=== PATIENT | female | born 1950 | race Caucasian/White ===

== ENCOUNTER → 2018-12-20 11:05 | Outpatient (CLI) | payer MEDICARE, OTHER, SELFPAY ==
[2018-12-20 12:49] LABS: Blood Urea Nitrogen 15 mg/dL (7-17); Calcium 9.8 mg/dL (8.4-10.2); Carbon Dioxide 30 mmol/L (22-32); Chloride 103 mmol/L (98-107); Estimated Glomerular Filt Rate > 60.0 mL/min (>60); Glucose 87 mg/dL (80-110); HEMOLYSIS < 15 (0-50); Sodium 140 mmol/L (137-145)
== END ==
PROVIDERS: Visit Provider Physician Assistant
DX: R10.9 Unspecified abdominal pain (principal)
CPT/HCPCS: 36415; 80048; 87086

== ENCOUNTER 2022-09-03 16:21 | Emergency (ER) | payer OTHER, SELFPAY ==
[2022-09-03] VITALS (10 sets, daily range): BP systolic 140–177; BP diastolic 77–87; PULSE 69–89; RESP 16; TEMP 37.1; O2SAT 97–100; BMI 25.7
[2022-09-03 17:16] LABS: Add Manual Diff / Slide Review NO; Basophils Absolute Auto 0 /uL (0-100); Basophils Percent Auto 0.7 % (0-2); Eosinophils Absolute Auto 100 /uL (0-450); Eosinophils Percent Auto 1.6 % (2-4); Hemoglobin 15.5 g/dL (12.0-16.0); Lymphocytes Absolute Auto 1200 /uL (1100-4500); Lymphocytes Percent Auto 22.6 % (25-40); Mean Corpuscular HGB Conc 34.5 % (30-36); Mean Corpuscular Hemoglobin 32.4 PG (26-34); Monocytes Absolute Auto 400 /uL (0-900); Monocytes Percent Auto 7.1 % (3-14); Neutrophils Absolute Auto 3600 /uL (1500-7000); Platelet Count 250 X10^3/uL (150-400); Red Blood Cell Count 4.78 X10^6/uL (4.0-5.2); Red Cell Distribution Width 13.5 % (11.6-14.8); White Blood Cell Count 5.3 X10^3/uL (4.5-11.0)
[2022-09-03 17:28] LABS: Ammonia (NH3) < 9 umol/L (9-30)
[2022-09-03 17:29] LABS: Alanine Aminotransferase 34 IU/L (<35); Albumin 4.6 g/dL (3.5-5.0); Albumin Globulin Ratio 1.6 (1.0-2.8); Alkaline Phosphatase 65 U/L (38-126); Aspartate Aminotransferase 35 IU/L (14-36); BUN Creatinine Ratio 18.8 (6-22); Bilirubin Total 0.4 mg/dL (0.2-1.3); Blood Urea Nitrogen 12 mg/dL (7-17); Carbon Dioxide 27 mmol/L (22-32); Chloride 106 mmol/L (98-107); Estimated Glomerular Filt Rate > 60 mL/min (>60); Globulin 2.9 g/dL (1.7-4.1); Glucose 92 mg/dL (80-110); HEMOLYSIS < 15 (0-50); Lipase 130 U/L (23-300); Potassium 3.9 mmol/L (3.4-5.1); Sodium 138 mmol/L (137-145); Total Protein 7.5 g/dL (6.3-8.2)
--- NOTE | 2022-09-03 18:24 | DI.CT.S_ITS ---
PROCEDURE: CT ABDOMEN PELVIS W CON INDICATIONS: generalized abd pain TECHNIQUE: After the administration of intravenous contrast, axial sections acquired from the lung bases to the pubic symphysis. Coronal and sagittal reformats were performed. For radiation dose reduction, the following was used: automated exposure control, adjustment of mA and/or kV according to patient size. COMPARISON: None. FINDINGS: Lower thorax: Bibasilar mild atelectasis and infiltrate Heart size normal. No hiatal hernia. Liver: Normal in size and attenuation. No contour deformity present. Biliary system: Cholecystectomy. No intra or extrahepatic bile duct dilation. Pancreas: Unremarkable without mass or inflammation evident. Spleen: Normal in size and density. Adrenals: Normal morphology and density. Reproductive system: Unremarkable as visualized. Urinary system: Normal renal size and attenuation. No renal calculi, hydronephrosis, or solid mass present. Urinary bladder unremarkable. Gastrointestinal system: The bowel is unremarkable without evidence of bowel obstruction or inflammation. The stomach appears unremarkable. Appendix: No findings to suggest acute appendicitis. Peritoneal spaces: No mesenteric or retroperitoneal adenopathy. No free air. No free fluid. Vasculature: The IVC, aorta and iliac vasculature are unremarkable. Abdominal wall: Abdominal wall intact without evidence of ventral or inguinal hernias. Musculoskeletal: Normal bone mineralization. Degenerative disc disease and arthropathy noted in lower lumbar spine. No acute fractures. IMPRESSION: 1. No acute CT findings in the abdomen and pelvis. Approved by: Marck Dumont M.D. on 09/03/2022 at 18:18
--- NOTE | 2022-09-03 18:24 | ED.GENADULT ---
HPI - General Adult General Chief complaint: Abdominal Pain Stated complaint: ABD pain Time Seen by Provider: 09/03/22 17:59 Source: patient Mode of arrival: Ambulatory History of Present Illness HPI narrative: 72-year-old female who has had her gallbladder removed. Has also been told that she has IBS. Is followed by GI. Has had multiple endoscopies and colonoscopies in the past. Is here for evaluation of upper abdomen/right upper quadrant abdominal discomfort. Has had discomfort over the past week but worsening over the past couple days. Some nausea no vomiting. No fevers. Does some issues with constipation but this is consistent with her history of IBS. No urinary symptoms. No vaginal bleeding. She states that the symptoms she is having now are the same as what she is had several times in the past. The last time was a couple years ago. She states she is had CT scans in the past and has been diagnosed with colitis. Initially she was started on antibiotics and this did not improve any of her symptoms and then she went on steroids and her symptoms got better. She has followed up with her GI doctor since then but subsequent colonoscopies have all been unremarkable. Related Data Home Medications Medication Instructions Recorded Confirmed cholecalciferol (vitamin D3) PO 12/20/18 12/20/18 multivitamin with iron-mineral PO 12/20/18 12/20/18 nitrofurantoin 100 mg PO BID 12/20/18 12/20/18 monohydrate/macrocrystals 100 mg capsule (Macrobid) pyridoxine (vitamin B6) PO 12/20/18 12/20/18 Previous Rx's Medication Instructions Recorded prednisone 20 mg tablet 20 mg PO DAILY 7 days #7 tabs 09/03/22 Allergies Allergy/AdvReac Type Severity Reaction Status Date / Time No Known Allergies Allergy Uncoded 08/22/17 12:29 Review of Systems Constitutional Constitutional: Reports system reviewed and no additional complaints, except as documented Respiratory Respiratory: Reports system reviewed and no additional complaints, except as documented Gastrointestinal Gastrointestinal: Reports system reviewed and no additional complaints, except as documented Genitourinary Genitourinary: Reports system reviewed and no additional complaints, except as documented Integumentary/Breasts Skin/Breast: Reports system reviewed and no additional complaints, except as documented Neurologic Neurologic: Reports system reviewed and no additional complaints, except as documented Hematologic/Lymphatic On Anticoagulants: No Patient History Social History Smoking Status: Former smoker Smoking Status: Former smoker tobacco type: cigarettes alcohol intake frequency: 0-2 drinks per day Substance Use Type: does not use Exam Initial Vital Signs Initial Vital Signs: Vital Signs Temperature 98.8 F 09/03/22 16:27 Pulse Rate 89 09/03/22 16:27 Respiratory Rate 16 09/03/22 16:27 Blood Pressure 177/86 H 09/03/22 16:27 Pulse Oximetry 100 09/03/22 16:27 Oxygen Delivery Method Room Air 09/03/22 16:27 Const General: cooperative, comfortable and No ill appearing HENMT Head: normal to inspection and normocephalic Resp Effort & Inspection: normal respiratory effort Cardio Rate: regular rate GI Inspection: normal to inspection and non-distended Palpation: tender (Upper abdomen) Skin General: no rashes or lesions noted Neuro General: patient alert, patient awake and moves all extremities Extrem General: normal to inspection and capillary refill normal Course Orders Ordered: ED Orders 09/03/22 17:00 Ammonia (NH3) Stat Complete Blood Count AUTO DIFF Stat Comprehensive Metabolic Panel Stat Lipase Stat 09/03/22 18:24 CT abdomen pelvis w con Stat Vital Signs Vital signs: Vital Signs - 8 hr 09/03/22 16:27 09/03/22 16:53 09/03/22 16:54 Temperature 98.8 F Pulse Rate 89 76 76 Respiratory Rate 16 Blood Pressure 177/86 H Pulse Oximetry 100 98 97 Oxygen Delivery Method Room Air 09/03/22 16:54 09/03/22 17:00 09/03/22 17:00 Temperature Pulse Rate 75 Respiratory Rate Blood Pressure 140/77 141/80 H Pulse Oximetry 97 Oxygen Delivery Method 09/03/22 17:30 09/03/22 17:30 09/03/22 18:00 Temperature Pulse Rate 69 Respiratory Rate Blood Pressure 146/81 H 144/78 H Pulse Oximetry 97 Oxygen Delivery Method 09/03/22 18:00 09/03/22 18:30 09/03/22 18:30 Temperature Pulse Rate 71 78 Respiratory Rate Blood Pressure 150/81 H Pulse Oximetry 98 97 Oxygen Delivery Method 09/03/22 18:42 09/03/22 18:42 09/03/22 19:00 Temperature Pulse Rate 79 Respiratory Rate Blood Pressure 152/87 H 142/86 H Pulse Oximetry 100 Oxygen Delivery Method 09/03/22 19:00 09/03/22 19:30 09/03/22 19:30 Temperature Pulse Rate 77 82 Respiratory Rate Blood Pressure 158/87 H Pulse Oximetry 99 99 Oxygen Delivery Method Medical Decision Making Lab Data Lab results reviewed: Yes I reviewed the patient's lab results. 09/03/22 17:00 09/03/22 17:00 Labs: Lab Results 09/03/22 09/03/22 09/03/22 Range/Units 17:00 17:00 17:00 WBC 5.3 (4.5-11.0) X10^3/uL RBC 4.78 (4.0-5.2) X10^6/uL Hgb 15.5 (12.0-16.0) g/dL Hct 45.0 (36-46) % MCV 94.0 (80-100) fL MCH 32.4 (26-34) PG MCHC 34.5 (30-36) % RDW 13.5 (11.6-14.8) % Plt Count 250 (150-400) X10^3/uL Neut % (Auto) 68.0 (50-75) % Lymph % (Auto) 22.6 L (25-40) % Richardson % (Auto) 7.1 (3-14) % Eos % (Auto) 1.6 L (2-4) % Baso % (Auto) 0.7 (0-2) % Neut # (Auto) 3600 (9297-2233) /uL Lymph # (Auto) 1200 (5001-3282) /uL Richardson # (Auto) 400 (0-900) /uL Eos # (Auto) 100 (0-450) /uL Baso # (Auto) 0 (0-100) /uL Sodium 138 (137-145) mmol/L Potassium 3.9 (3.4-5.1) mmol/L Chloride 106 (98-107) mmol/L Carbon Dioxide 27 (22-32) mmol/L BUN 12 (7-17) mg/dL Creatinine 0.64 (0.52-1.04) mg/dL Estimated GFR > 60 (>60) mL/min BUN/Creatinine Ratio 18.8 (6-22) Glucose 92 (80-110) mg/dL Calcium 10.0 (8.4-10.2) mg/dL Total Bilirubin 0.4 (0.2-1.3) mg/dL AST 35 (14-36) IU/L ALT 34 (<35) IU/L Alkaline Phosphatase 65 (38-126) U/L Ammonia < 9 L (9-30) umol/L Total Protein 7.5 (6.3-8.2) g/dL Albumin 4.6 (3.5-5.0) g/dL Globulin 2.9 (1.7-4.1) g/dL Albumin/Globulin Ratio 1.6 (1.0-2.8) Lipase 130 (23-300) U/L Urine Dip Bedside Urine Glucose Negative Bedside Urine Bilirubin - Negative Bedside Urine Ketone - Negative Urine Specific [place] 1.010 Bedside Urine Occult Blood - Negative Bedside Urine pH 7.0 Bedside Urine Protein - Negative Bedside Urine Urobilinogen - Negative Bedside Urine Nitrite - Negative Bedside Urine Leukocytes - Negative Esterase Point of care testing: Urine Dip Bedside Urine Glucose Negative Bedside Urine Bilirubin - Negative Bedside Urine Ketone - Negative Urine Specific [place] 1.010 Bedside Urine Occult Blood - Negative Bedside Urine pH 7.0 Bedside Urine Protein - Negative Bedside Urine Urobilinogen - Negative Bedside Urine Nitrite - Negative Bedside Urine Leukocytes - Negative Esterase Imaging Data CT scan - abdomen/pelvis: Radiologist's Impression: PROCEDURE:? CT ABDOMEN PELVIS W CON ? INDICATIONS:? generalized abd pain ? TECHNIQUE:? After the administration of intravenous contrast, axial sections acquired from the lung bases to the pubic symphysis.? Coronal and sagittal reformats were performed.? For radiation dose reduction, the following was used:? automated exposure control, adjustment of mA and/or kV according to patient size.? ? COMPARISON:? None. ? FINDINGS: ? Lower thorax:? Bibasilar mild atelectasis and infiltrate? Heart size normal.? No hiatal hernia. ? Liver:? Normal in size and attenuation. No contour deformity present. ? Biliary system:? Cholecystectomy.? No intra or extrahepatic bile duct dilation. ? Pancreas:? Unremarkable without mass or inflammation evident. ? Spleen:? Normal in size and density. ? Adrenals:? Normal morphology and density. ? Reproductive system:? Unremarkable as visualized. ? Urinary system:? Normal renal size and attenuation. No renal calculi, hydronephrosis, or solid mass present.? Urinary bladder unremarkable. ? Gastrointestinal system:? The bowel is unremarkable without evidence of bowel obstruction or inflammation. The stomach appears unremarkable. ? Appendix:? No findings to suggest acute appendicitis. ? Peritoneal spaces:? No mesenteric or retroperitoneal adenopathy.? No free air.? No free fluid.? ? Vasculature:? The IVC, aorta and iliac vasculature are unremarkable. ? Abdominal wall:? Abdominal wall intact without evidence of ventral or inguinal hernias. ? Musculoskeletal:? Normal bone mineralization.? Degenerative disc disease and arthropathy noted in lower lumbar spine.? No acute fractures.? ? IMPRESSION: ? 1. No acute CT findings in the abdomen and pelvis. MDM Narrative Medical decision making narrative: Labs are unremarkable. Has a benign exam. CT scan is unremarkable. No signs of colitis. I did discuss this with the patient. Patient understands the lack of a definitive diagnosis. There was no indication for antibiotics. The plan will be to give her a prescription for steroids however she was going to hold on this for the next couple days. The reason I am doing this because she states that the last time she had symptoms like this she received steroids and they resolved. She does admit that she came in earlier this time than the last time because she did not want the symptoms to get worse. If her symptoms are not better or worse in the next couple days that she will start taking the steroids as directed. She does understand that if her symptoms continue to get worse despite that that she does need to be re-evaluated. The patient expressed understanding and agreement with this plan. Discharge Plan Departure Patient Disposition: Home Clinical Impression: Abdominal pain Instructions: DI for Abdominal Pain-Adult Activity Restrictions/Additional Instructions: I do recommend that you continue to take all of your medications as directed. Contact your GI doctor tomorrow for a follow-up. Return to the emergency department for new or worsening symptoms. Prescriptions: New prednisone 20 mg tablet 20 mg PO DAILY 7 Days Qty: 7 0RF No Action pyridoxine (vitamin B6) PO cholecalciferol (vitamin D3) PO multivitamin with iron-mineral PO nitrofurantoin monohyd/m-cryst [Macrobid] 100 mg capsule 100 mg PO BID Stand Alone Forms: Patient Portal/API
== END 2022-09-03 20:02 | disposition home or self-care (01) ==
PROVIDERS: Emergency Medicine; Emergency Provider Emergency Medicine
DX: R10.11 Right upper quadrant pain (principal)
CPT/HCPCS: 36415; 74177; 80053; 81003; 82140; 83690; 85025; 99284; Q9967

== ENCOUNTER 2023-10-04 13:45 | Outpatient (RCR) | payer MEDICARE, SELFPAY ==
--- NOTE | 2023-07-19 17:43 | PT.OIE ---
Current Diagnoses Functional diarrhea (07/19/23) Low back pain, unspecified (07/19/23) Other specified disorders of muscle (07/19/23) Unspecified abdominal pain (07/19/23) Visit Care Team Role Provider Type Family Provider Other Providers Referring Provider Specialty: Address: Phone: Fax: Email: Angelica Quarles MD Attending Provider Non-Staff Primary Care Provider Specialty: Family Practice Address: [address] [place] [address], [id number] Email: Physical Therapy Initial Evaluation PT-OP-A Visit Information Start: 07/05/23 17:50 Freq: Status: Active Protocol: Document 07/19/23 13:48 LRN (Rec: 07/19/23 16:40 LRN [id number]) Out-Patient Physical Therapy Visit Information Visit Information Visit Type Initial Evaluation Visit Start Time 13:48 Visit Stop Time 14:33 Visit Number 1 Evaluation Information Evaluation Date 07/19/23 Precautions Precautions Intermittent Low back and now mid back pain possibly from IBS (03/2016), Osteoporosis, 3 surgeries for L tibial plateau fx, f/b L TKA 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 PT-OP-B Current Condition Start: 07/05/23 17:50 Freq: Status: Active Protocol: Document 07/19/23 13:48 LRN (Rec: 07/19/23 16:40 LRN [id number]) Current Condition History of Current Condition Onset Date 03/2016 Current Complaints PF ms not working properly, BM's 4-8x in morning. Pain associated w/BMs History of Current Condition Daily IBS pain and weird bowel habits that started 04/2018. Has 4-8 BM's in AM daily, wakes every morning with pain in intestines at 4:30 am, wakes by 5:30 am. Takes 2 hrs to push out fecal material. Can't be horizontal except for 5 hrs at a time. Pt states she was referred by GI physician due to the IBS. Treatment to use PF ms treatment with biofeedback to train her to properly push out fecal material better. Doesn't want to focus on urinary problems. Prior Treatments and Tests None. Takes double Miralax daily. Eats salads and food for fiber due to IBS. Developmental History Developmental History 2017 had normal bowel movements, daily. IBS thought caused by bacterial infections. Started as severe diahrrea and moved into cramping all the time. Treatment Goals Patient/Caregiver Goals Pt goal: Able to reduce the number of BMs in morning, BM's w/o pain. Make travelling easier to have more normal bowel mvmts w/o pain. Doesn' t want to focus on urinary problems. Personal Factors Other Personal Factors That May Effect IBS, LBP, Osteoporosis, multi Therapy/Recovery surgeries on L knee. PT-OP-C Subjective Start: 07/05/23 17:50 Freq: Status: Active Protocol: Document 07/19/23 13:48 LRN (Rec: 07/19/23 16:40 LRN [id number]) Patient Questionnaires Pelvic Floor Distress Inventory Questionnaire (PFDI- SF20) Pelvic Floor Score Pt not complete Pelvic Pain and Urgency/Frequency Patient Symptom Scale Pelvic Pain Score Pt not complete OP-PT Pain Assessment Pain Assessment Grid Paper Pain Assessment Grid Completed Yes Location Midback Pain Location Details ~T12/L1 Description- Other Pain rating not listed Low Back Pain Location Details Low back/sacral level Description- Other Pain rating not listed Abdomen Pain Location Details R ASIS & L abdominal Lower quadrant. Description- Other Pain rating not listed Comments Pain Comments Pt did not rate her pain, only noted location of pain. PT-OP-I Pelvic Floor Start: 07/05/23 17:50 Freq: Status: Active Protocol: Document 07/19/23 13:48 LRN (Rec: 07/19/23 16:40 LRN [id number]) Pelvic Floor Assessment Urine Leakage Size Small Leakage Cause Cough Other Leakage Causes Leakage only with illness when she was coughing regularly. Bowel Bowel Symptoms Constipation Other Bowel Symptoms Flatulence first in AM Bowel Movement Frequency 4-8x in morning [place] Stool Chart Comments Type 5-6 Pelvic Clock Pelvic Clock 3-6 Tightness Pelvic Clock 6-9 Tenderness,Tightness Pelvic Clock 9-12 Tenderness,Tightness Pelvic Clock Other Substitute hip AD, abdominal and Gluteal ms with PF contraction. Inter-Rectal Assessment Pain around anal clock. Tightness noted. Pt obvious with use of gluteal ms for PF contraction. Prolapse Cystocele Grade 2 Prolapse Comments Questionable Rectal prolapse Uterine was palpated ~6 cm. Perineal Descent Resting Absent Bearing Absent Contraction Ability Manual Muscle Testing Left 3 Manual Muscle Testing Right 3 Manual Muscle Testing Anterior 3 Manual Muscle Testing Posterior 3 PT-OP-J Posture/Palpation/Skin Start: 07/05/23 17:50 Freq: Status: Active Protocol: Document 07/19/23 13:48 LRN (Rec: 07/19/23 16:40 LRN [id number]) Posture Evaluation Position Standing T-Spine Posture Increased Kyphosis L-Spine Posture Increased Lordosis Knee Posture (R) Genu Recurvatum Comments Posture Comments L/S curve pivot point at L4-L5 , Sacrum is flattened. PT-OP-K Range of Motion Start: 07/05/23 17:50 Freq: Status: Active Protocol: Document 07/19/23 13:48 LRN (Rec: 07/19/23 16:40 LRN [id number]) Lumbar Spine Range of Motion Lumbar Spine Active Degrees Testing Position Standing Flexion 110 Extension 12 Rotation Left 20 Rotation Right 40 Lateral Flexion Left 5 Lateral Flexion Right 5 Hip Goniometric Range of Motion Hip Right Passive Testing Position Supine Internal Rotation 20 External Rotation 50 Left Passive Testing Position Supine Internal Rotation 30 External Rotation 50 PT-OP-M Strength Start: 07/05/23 17:50 Freq: Status: Active Protocol: Document 07/19/23 13:48 LRN (Rec: 07/19/23 16:40 LRN [id number]) Trunk Strength Trunk Manual Muscle Testing Core Stabilization Good Hip Strength Hip Manual Muscle Testing Right Comments Generally 5/5 Left Comments Generally 5/5 PT-OP-Q Treatments Start: 07/05/23 17:50 Freq: Status: Active Protocol: Document 07/19/23 13:48 LRN (Rec: 07/19/23 16:40 LRN [id number]) Self-Care/Home Management Treatment Education Other Education Discussed results of evaluation, attendance compliance, goals, and plan of care (POC). Pt agreeable to attendance compliance, goals and POC. Issued, discussed, & reviewed Bladder Diary for pt to complete over the next 7 days. Explained how to fill out diary and counting of urination times. Activities Self-Care/Home Management Activities Issued & reviewed HEP: Chris ex's and discussed exercise of Quick Flicks, Long Holds and Aggravators. PT-OP-T Assessment and Plan Start: 07/05/23 17:50 Freq: Status: Active Protocol: Document 07/19/23 13:48 LRN (Rec: 07/19/23 16:40 LRN [id number]) Physical Therapy Assessment Rehab Potential Rehabilitation Potential Good Evaluation Complexity Number of Personal Factors/Comorbidities 0 Number of Body Systems Impaired 4 or More Clinical Presentation at Evaluation Evolving Impairments Impairments Activity Tolerance,Pain, Posture,ROM,Soft Tissue Mobility,Transfers Other Impairments Coordination of breathing with activities and coordination of PF with bowel movements. LBP/mid back pain. Goals Three Impairment Abdominal pain with bowel movments Short Term Goal (STG) Pt will be educated in best positioning for bowel movement . STG Duration 6 wks-08/31/23 [place] Goal (LTG) Pt will have less onset of abdominal pain with bowel movements. LTG Duration 12 wks-10/12/23 Two Impairment Increased frequency of bowel movements daily. Impairment Pt has 6-8 BMs in AM daily, type 5 & 6. Short Term Goal (STG) Decrease number of BMs in the morning. STG Duration 6 wks-08/31/23 [facility] Goal (LTG) Improve normal bowel movements to lessen time of voiding to make travelng easier LTG Duration 12 wks-10/12/23 One Impairment HEP Short Term Goal (STG) Pt will be educated in Bowel program and Bowel massage. STG Duration 6 wks-08/31/23 [facility] Goal (LTG) Pt will be educated in self care HEP of abdominal, PF, hip stretches, deep breathing, proper posturing and low back care. LTG Duration 12 wks-10/12/23 Assessment Summary Assessment Pt is a 73 yo female with a tightened posterior PF and overactive gluteals, with frequency of bowel movements ( 6-8) daily since onset of IBS in 2018, bowel types 5 & 6. Pt may have poor bowel management causing short bouts of diahrrea daily. Review of he bowel/bladder diary should be inciteful as to further areas of dysfunction needing to be addressed. The pt's LBP will need to be addressed at the same time to help relax her posterior PF leading to relaxation and improved ability to have a bowel movement. The pt will benefit from skilled physical therapy to help relax her PF, neuro reeduc the pt in proper coordination of PF contractions, body mechanics, breathing coordination with ex and activities, educ in bowel care, vulvar/perineal care and therapeutic ex, manual therapy, and posture training. Assessment for gluten allergy would be beneificial to improving her diet and bowel function. Physical Therapy Plan Frequency and Duration Frequency of Treatment 1x/Week Duration of treatment (weeks) 12 Plan of Care Start Date 07/19/23 Plan of Care End Date 10/12/23 Therapeutic Interventions Therapeutic Interventions Home Exercise Program,Joint Mobilizations,Manual Therapy, Neuromuscular Re-education, Self-Care/Home Management,Soft Tissue Mobilization,Taping, Therapeutic Activities, Therapeutic Exercises Modalities Biofeedback,Cold Pack/Ice Massage,Electric Stimulation, Hot Packs Next Visit Focus/Plan Next Note Type Treatment Note Next Visit Plan Next: Discuss and have pt complete questionnaires. Vemg asessement. EStim for relaxation, biofeedback for neuro martir to relax PF. relax PF, neuro reeduc the pt in proper coordination of PF contractions, body mechanics, breathing coordination with ex and activities, educ in bowel care, vulvar/perineal care and therapeutic ex (PF stretch & meme hip IR, L trunk rot stretch), and posture training . Check abdominal mobility and if needed: STM of abdomen (and urachus) & bladder mobility Discuss w/pt possible gluten allergy would be beneificial to improving her diet and bowel function. POC: Pt education, Manual therapy. Biofeedback with vaginal sensor for PF relaxation awareness, Therapeutic Exercises, Therapeutic Activities, Neuromuscular Reeducation.
--- NOTE | 2023-07-26 15:55 | PT.OTN ---
Addendum entered and electronically signed by Fauzia Kilpatrick, PT 07/26/23 16:28: PFDI-SF20 score: #1-6 is 29.6, #7-14 is 59.3, #15-20 is 29.83. Total is 109.8 Original Note: Current Diagnoses Functional diarrhea (07/26/23) Low back pain, unspecified (07/26/23) Other specified disorders of muscle (07/26/23) Unspecified abdominal pain (07/26/23) Physical Therapy Treatment Note PT-OP-A Visit Information Start: 07/05/23 17:50 Freq: Status: Active Protocol: Document 07/26/23 13:53 LRN (Rec: 07/26/23 14:36 LRN [id number]) Out-Patient Physical Therapy Visit Information Visit Information Visit Type Treatment Note Visit Start Time 13:53 Visit Stop Time 14:35 Visit Number 2 Evaluation Information Evaluation Date 07/19/23 Precautions Precautions Intermittent Low back and now mid back pain possibly from IBS (03/2016), Osteoporosis, 3 surgeries for L tibial plateau fx, f/b L TKA 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 Osteoporosis . PT-OP-B Current Condition Start: 07/05/23 17:50 Freq: Status: Active Protocol: Document 07/19/23 13:48 LRN (Rec: 07/19/23 16:40 LRN [id number]) Current Condition History of Current Condition Onset Date 03/2016 Current Complaints PF ms not working properly, BM's 4-8x in morning. Pain associated w/BMs History of Current Condition Daily IBS pain and weird bowel habits that started 04/2018. Has 4-8 BM's in AM daily, wakes every morning with pain in intestines at 4:30 am, wakes by 5:30 am. Takes 2 hrs to push out fecal material. Can't be horizontal except for 5 hrs at a time. Pt states she was referred by GI physician due to the IBS. Treatment to use PF ms treatment with biofeedback to train her to properly push out fecal material better. Doesn't want to focus on urinary problems. Prior Treatments and Tests None. Takes double Miralax daily. Eats salads and food for fiber due to IBS. Developmental History Developmental History 2017 had normal bowel movements, daily. IBS thought caused by bacterial infections. Started as severe diahrrea and moved into cramping all the time. Treatment Goals Patient/Caregiver Goals Pt goal: Able to reduce the number of BMs in morning, BM's w/o pain. Make travelling easier to have more normal bowel mvmts w/o pain. Doesn' t want to focus on urinary problems. Personal Factors Other Personal Factors That May Effect IBS, LBP, Osteoporosis, multi Therapy/Recovery surgeries on L knee. PT-OP-C Subjective Start: 07/05/23 17:50 Freq: Status: Active Protocol: Document 07/26/23 13:53 LRN (Rec: 07/26/23 14:36 LRN [id number]) OP-PT Subjective Patient Comments Patient Comments States her BM's are thin and long over a 3 hr period. Has to do warm H2O (24 oz) and abdominal massage every morning, and pushes a little with each BM and more on last BM. ABdominal massage trigger BM. In AM daily has abdominal pressure every morning (for IBS) with some cramping and sometimes controlled by dicyclomine ( anti-spasmodic), taken after BM in morning (at night takes Miralax), to help with reducing cramping during the day. The med doesn't cause her constipation. 2018 Gall bladder removed due to upper R quadrant pain. She has had ARM test and was told her ms are lax enough to not be able to push stool out. PT-OP-I Pelvic Floor Start: 07/05/23 17:50 Freq: Status: Active Protocol: Document 07/19/23 13:48 LRN (Rec: 07/19/23 16:40 LRN [id number]) Pelvic Floor Assessment Urine Leakage Size Small Leakage Cause Cough Other Leakage Causes Leakage only with illness when she was coughing regularly. Bowel Bowel Symptoms Constipation Other Bowel Symptoms Flatulence first in AM Bowel Movement Frequency 4-8x in morning Juliaetta Stool Chart Comments Type 5-6 Pelvic Clock Pelvic Clock 3-6 Tightness Pelvic Clock 6-9 Tenderness,Tightness Pelvic Clock 9-12 Tenderness,Tightness Pelvic Clock Other Substitute hip AD, abdominal and Gluteal ms with PF contraction. Inter-Rectal Assessment Pain around anal clock. Tightness noted. Pt obvious with use of gluteal ms for PF contraction. Prolapse Cystocele Grade 2 Prolapse Comments Questionable Rectal prolapse Uterine was palpated ~6 cm. Perineal Descent Resting Absent Bearing Absent Contraction Ability Manual Muscle Testing Left 3 Manual Muscle Testing Right 3 Manual Muscle Testing Anterior 3 Manual Muscle Testing Posterior 3 PT-OP-J Posture/Palpation/Skin Start: 07/05/23 17:50 Freq: Status: Active Protocol: Document 07/19/23 13:48 LRN (Rec: 07/19/23 16:40 LRN [id number]) Posture Evaluation Position Standing T-Spine Posture Increased Kyphosis L-Spine Posture Increased Lordosis Knee Posture (R) Genu Recurvatum Comments Posture Comments L/S curve pivot point at L4-L5 , Sacrum is flattened. PT-OP-K Range of Motion Start: 07/05/23 17:50 Freq: Status: Active Protocol: Document 07/19/23 13:48 LRN (Rec: 07/19/23 16:40 LRN [id number]) Lumbar Spine Range of Motion Lumbar Spine Active Degrees Testing Position Standing Flexion 110 Extension 12 Rotation Left 20 Rotation Right 40 Lateral Flexion Left 5 Lateral Flexion Right 5 Hip Goniometric Range of Motion Hip Right Passive Testing Position Supine Internal Rotation 20 External Rotation 50 Left Passive Testing Position Supine Internal Rotation 30 External Rotation 50 PT-OP-M Strength Start: 07/05/23 17:50 Freq: Status: Active Protocol: Document 07/19/23 13:48 LRN (Rec: 07/19/23 16:40 LRN [id number]) Trunk Strength Trunk Manual Muscle Testing Core Stabilization Good Hip Strength Hip Manual Muscle Testing Right Comments Generally 5/5 Left Comments Generally 5/5 PT-OP-Q Treatments Start: 07/05/23 17:50 Freq: Status: Active Protocol: Document 07/26/23 13:53 LRN (Rec: 07/26/23 14:36 LRN [id number]) Therapeutic Exercises Supine Exercises Happy Baby Pose Supine Exercise Name Happy Baby Pose Reps/Minutes 4' Comments Cued to relax PF, breathe slow -deep breathing. Self-Care/Home Management Treatment Education Patient Education Home Exercise Program Other Education Discussed at start, pt's new primary care physician Zak King MD at [place], [place]. Pt discussed her filling out of her Bladder diary, and her routine. Reviewed & discussed at length and in depth her bladder diary results (2.5 days), of BM's only in AM with several voids daily between 6-10 am. Discussed possible effects of medications on BM frequency and types, fluid intake (found to be of adequate amt). Discussed Fluid intake is mostly > 1/2 body wgt in oz's. Activities Self-Care/Home Management Activities Issued HEP: Happy Baby Pose PT-OP-T Assessment and Plan Start: 07/05/23 17:50 Freq: Status: Active Protocol: Document 07/26/23 13:53 LRN (Rec: 07/26/23 14:36 LRN [id number]) Physical Therapy Assessment Goals Three Impairment Abdominal pain with bowel movments Short Term Goal (STG) Pt will be educated in best positioning for bowel movement . STG Duration 6 wks-08/31/23 Wax Cutter Goal (LTG) Pt will have less onset of abdominal pain with bowel movements. LTG Duration 12 wks-10/12/23 Two Impairment Increased frequency of bowel movements daily. Impairment Pt has 6-8 BMs in AM daily, type 5 & 6. Short Term Goal (STG) Decrease number of BMs in the morning. STG Duration 6 wks-08/31/23 Half-Way Goal (LTG) Improve normal bowel movements to lessen time of voiding to make travelng easier LTG Duration 12 wks-10/12/23 One Impairment HEP Short Term Goal (STG) Pt will be educated in Bowel program and Bowel massage. STG Duration 6 wks-08/31/23 Half-Way Goal (LTG) Pt will be educated in self care HEP of abdominal, PF, hip stretches, deep breathing, proper posturing and low back care. LTG Duration 12 wks-10/12/23 Assessment Summary Assessment 73 yo female with a tightened posterior PF and overactive gluteals, with frequency of bowel movements (6-8) daily since onset of IBS in 2018, bowel types 5 & 6. After review of bladder diary, pt appears to be drinking plenty of liquids, but is taking dicyclomine (anti-spasmodic, relieves ms spasms) in AM, then miralax (laxative) in PM. Pt is having LBP that feels like menstrual cramps. PFDI- SF20 to be scored later. Physical Therapy Plan Frequency and Duration Frequency of Treatment 1x/Week Duration of treatment (weeks) 12 Plan of Care Start Date 07/19/23 Plan of Care End Date 10/12/23 Next Visit Focus/Plan Next Note Type Treatment Note Next Visit Plan Next: Vemg asessement. EStim for relaxation, biofeedback for neuro martir to relax PF. relax PF, neuro reeduc the pt in proper coordination of PF contractions, body mechanics, breathing coordination with ex and activities, educ in bowel care, vulvar/perineal care and therapeutic ex (PF stretch & meme hip IR, L trunk rot stretch), and posture training . Check abdominal mobility and if needed: STM of abdomen (and urachus) & bladder mobility Discuss w/pt possible gluten allergy would be beneificial to improving her diet and bowel function. POC: Pt education, Manual therapy. Biofeedback with vaginal sensor for PF relaxation awareness, Therapeutic Exercises, Therapeutic Activities, Neuromuscular Reeducation.
--- NOTE | 2023-08-03 14:22 | PT.OTN ---
Current Diagnoses Functional diarrhea (08/03/23) Low back pain, unspecified (08/03/23) Other specified disorders of muscle (08/03/23) Unspecified abdominal pain (08/03/23) Physical Therapy Treatment Note PT-OP-A Visit Information Start: 07/05/23 17:50 Freq: Status: Active Protocol: Document 08/03/23 13:02 LRN (Rec: 08/03/23 14:19 LRN [id number]) Out-Patient Physical Therapy Visit Information Visit Information Visit Type Treatment Note Visit Note Rec'd med list from patient. Visit Start Time 13:02 Visit Stop Time 13:52 Visit Number 3 Evaluation Information Evaluation Date 07/19/23 Precautions Precautions Intermittent Low back and now mid back pain possibly from IBS (03/2016), Osteoporosis, 3 surgeries for L tibial plateau fx, f/b L TKA 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 Osteoporosis . PT-OP-B Current Condition Start: 07/05/23 17:50 Freq: Status: Active Protocol: Document 07/19/23 13:48 LRN (Rec: 07/19/23 16:40 LRN [id number]) Current Condition History of Current Condition Onset Date 03/2016 Current Complaints PF ms not working properly, BM's 4-8x in morning. Pain associated w/BMs History of Current Condition Daily IBS pain and weird bowel habits that started 04/2018. Has 4-8 BM's in AM daily, wakes every morning with pain in intestines at 4:30 am, wakes by 5:30 am. Takes 2 hrs to push out fecal material. Can't be horizontal except for 5 hrs at a time. Pt states she was referred by GI physician due to the IBS. Treatment to use PF ms treatment with biofeedback to train her to properly push out fecal material better. Doesn't want to focus on urinary problems. Prior Treatments and Tests None. Takes double Miralax daily. Eats salads and food for fiber due to IBS. Developmental History Developmental History 2017 had normal bowel movements, daily. IBS thought caused by bacterial infections. Started as severe diahrrea and moved into cramping all the time. Treatment Goals Patient/Caregiver Goals Pt goal: Able to reduce the number of BMs in morning, BM's w/o pain. Make travelling easier to have more normal bowel mvmts w/o pain. Doesn' t want to focus on urinary problems. Personal Factors Other Personal Factors That May Effect IBS, LBP, Osteoporosis, multi Therapy/Recovery surgeries on L knee. PT-OP-C Subjective Start: 07/05/23 17:50 Freq: Status: Active Protocol: Document 08/03/23 13:02 LRN (Rec: 08/03/23 14:19 LRN [id number]) OP-PT Subjective Patient Comments Patient Comments Did bladder diary. Because of IBS, needs anti-spasmodic to relieve bowel spasms (with IBS ) and abdominal pain/gas. If stops taking Dicyclomine, then she has cramping & is sick to stomach. Patient Reported Progress Same PT-OP-I Pelvic Floor Start: 07/05/23 17:50 Freq: Status: Active Protocol: Document 08/03/23 13:02 LRN (Rec: 08/03/23 14:19 LRN [id number]) Pelvic Floor Assessment SEMG (uV) Baseline 0.4 Quick Contraction 13.5 10 Second Contraction 11.5 Recruitment Pattern Good Relaxation Fair Holding Fair Stability of Hold Poor/Slow SEMG Stability of Rest Good Comments Pelvic Floor Comments Quick Flicks: With substitute ms noted: 10 reps strength (uV's): avg work 14.5, avg rest 6.4. 20 reps strength (uV's): avg work 15.7, avg rest 6.3. Without Substitute Muscles: 10 reps strength (uV's): avg work 13.5, avg rest 4.6. 20 reps strength (uV's): avg work 12.9, avg rest 3.7. Long Holds: 10 reps strength (uV's): avg work 11.5, avg rest 10.1. 20 reps strength (uV's): avg work 10.1, avg rest 0.8. PT-OP-J Posture/Palpation/Skin Start: 07/05/23 17:50 Freq: Status: Active Protocol: Document 07/19/23 13:48 LRN (Rec: 07/19/23 16:40 LRN [id number]) Posture Evaluation Position Standing T-Spine Posture Increased Kyphosis L-Spine Posture Increased Lordosis Knee Posture (R) Genu Recurvatum Comments Posture Comments L/S curve pivot point at L4-L5 , Sacrum is flattened. PT-OP-K Range of Motion Start: 07/05/23 17:50 Freq: Status: Active Protocol: Document 07/19/23 13:48 LRN (Rec: 07/19/23 16:40 LRN [id number]) Lumbar Spine Range of Motion Lumbar Spine Active Degrees Testing Position Standing Flexion 110 Extension 12 Rotation Left 20 Rotation Right 40 Lateral Flexion Left 5 Lateral Flexion Right 5 Hip Goniometric Range of Motion Hip Right Passive Testing Position Supine Internal Rotation 20 External Rotation 50 Left Passive Testing Position Supine Internal Rotation 30 External Rotation 50 PT-OP-M Strength Start: 07/05/23 17:50 Freq: Status: Active Protocol: Document 07/19/23 13:48 LRN (Rec: 07/19/23 16:40 LRN [id number]) Trunk Strength Trunk Manual Muscle Testing Core Stabilization Good Hip Strength Hip Manual Muscle Testing Right Comments Generally 5/5 Left Comments Generally 5/5 PT-OP-Q Treatments Start: 07/05/23 17:50 Freq: Status: Active Protocol: Document 08/03/23 13:02 LRN (Rec: 08/03/23 14:19 LRN [id number]) Therapeutic Exercises Supine Exercises Bowel Massage Supine Exercise Name Bowel massage by therapist Reps/Minutes 5' Comments Pt cued throughout massage Other Exercises Vemg Kegels Other Exercise Name Resting, Quick, and Long Hold contractions Reps/Minutes 28' Comments Extra time taken for Vemg placement. See PF assessment above. Self-Care/Home Management Treatment Education Other Education Reviewed Bowel/Bladder dairy and discussed food/fluid intake (AM/PM), bowel movement frequency, and times beween voids. Reviewed and discussed pt food diary and lack of vegs in diet. Recommended pt slowly increase servings of veg to 2 for lunch and dinner and fruit for breakfast. Educated and discussed bowel program and bowel massage with modifications to bowel program as needed. Activities Self-Care/Home Management Activities Issued and reviewed Bowel Program & Bowel massage. PT-OP-T Assessment and Plan Start: 07/05/23 17:50 Freq: Status: Active Protocol: Document 08/03/23 13:02 LRN (Rec: 08/03/23 14:19 LRN [id number]) Physical Therapy Assessment Goals Three Impairment Abdominal pain with bowel movments Short Term Goal (STG) Pt will be educated in best positioning for bowel movement . STG Duration 6 wks-08/31/23 Health And Wellness Advisor Goal (LTG) Pt will have less onset of abdominal pain with bowel movements. LTG Duration 12 wks-10/12/23 Two Impairment Increased frequency of bowel movements daily. Impairment Pt has 6-8 BMs in AM daily, type 5 & 6. Short Term Goal (STG) Decrease number of BMs in the morning. STG Duration 6 wks-08/31/23 Senior Care Goal (LTG) Improve normal bowel movements to lessen time of voiding to make travelng easier LTG Duration 12 wks-10/12/23 One Impairment HEP Short Term Goal (STG) Pt will be educated in Bowel program and Bowel massage. 08/03/23: Pt educated in Bowel program and Bowel massage. STG Duration 6 wks-08/31/23 (08/03/23: MET GOAL) Health And Wellness Advisor Goal (LTG) Pt will be educated in self care HEP of abdominal, PF, hip stretches, deep breathing, proper posturing and low back care. 07/26/23: HEP: Happy Baby Pose LTG Duration 12 wks-10/12/23 progressed on 08/03/23 Assessment Summary Assessment 73 yo female with frequency of bowel movements (6-8) daily since onset of IBS in 2018, bowel types 5 & 6. Pt uses all her substitute muscles to get a PF contraction with a tightened posterior PF and overactive gluteals. Per Vemg biofeedback, resting tone is very low (0.4 mv's), Quick contractions (w/o substitute ms is high at 20 mv's and intermittently low at rest), endurance hold shows poor endurance after 2 reps. Pt daily bowel program lacks recommended number of vegs with lunch/dinner. Pt eatingn protein bars and protein drinks that may be an irritant . Further monitor diet/BM's to reduce #BM's in AM. Physical Therapy Plan Frequency and Duration Frequency of Treatment 1x/Week Duration of treatment (weeks) 12 Plan of Care Start Date 07/19/23 Plan of Care End Date 10/12/23 Next Visit Focus/Plan Next Note Type Treatment Note Next Visit Plan Next: educate in best positioning for bowel movement . Traing: relax PF, neuro reeduc the pt in proper coordination of PF contractions, body mechanics, breathing coordination with ex and activities, educ in vulvar/perineal care, and therapeutic ex (PF stretch & meme hip IR, L trunk rot stretch), and posture training . Manual: abdominal mobility and if needed: STM of abdomen (and urachus) & bladder mobility Discuss w/pt possible gluten allergy would be beneificial to improving her diet and bowel function. POC: Pt education, Manual therapy. Biofeedback with vaginal sensor for PF relaxation awareness, Therapeutic Exercises, Therapeutic Activities, Neuromuscular Reeducation.
--- NOTE | 2023-08-09 15:48 | PT.OTN ---
Current Diagnoses Functional diarrhea (08/09/23) Low back pain, unspecified (08/09/23) Other specified disorders of muscle (08/09/23) Unspecified abdominal pain (08/09/23) Physical Therapy Treatment Note PT-OP-A Visit Information Start: 07/05/23 17:50 Freq: Status: Active Protocol: Document 08/09/23 13:02 LRN (Rec: 08/09/23 13:46 LRN [id number]) Out-Patient Physical Therapy Visit Information Visit Information Visit Type Treatment Note Visit Start Time 13:02 Visit Stop Time 13:44 Visit Number 4 Evaluation Information Evaluation Date 07/19/23 Precautions Precautions Intermittent Low back and now mid back pain possibly from IBS (03/2016), Osteoporosis, 3 surgeries for L tibial plateau fx, f/b L TKA 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 Osteoporosis . PT-OP-B Current Condition Start: 07/05/23 17:50 Freq: Status: Active Protocol: Document 07/19/23 13:48 LRN (Rec: 07/19/23 16:40 LRN [id number]) Current Condition History of Current Condition Onset Date 03/2016 Current Complaints PF ms not working properly, BM's 4-8x in morning. Pain associated w/BMs History of Current Condition Daily IBS pain and weird bowel habits that started 04/2018. Has 4-8 BM's in AM daily, wakes every morning with pain in intestines at 4:30 am, wakes by 5:30 am. Takes 2 hrs to push out fecal material. Can't be horizontal except for 5 hrs at a time. Pt states she was referred by GI physician due to the IBS. Treatment to use PF ms treatment with biofeedback to train her to properly push out fecal material better. Doesn't want to focus on urinary problems. Prior Treatments and Tests None. Takes double Miralax daily. Eats salads and food for fiber due to IBS. Developmental History Developmental History 2017 had normal bowel movements, daily. IBS thought caused by bacterial infections. Started as severe diahrrea and moved into cramping all the time. Treatment Goals Patient/Caregiver Goals Pt goal: Able to reduce the number of BMs in morning, BM's w/o pain. Make travelling easier to have more normal bowel mvmts w/o pain. Doesn' t want to focus on urinary problems. Personal Factors Other Personal Factors That May Effect IBS, LBP, Osteoporosis, multi Therapy/Recovery surgeries on L knee. PT-OP-C Subjective Start: 07/05/23 17:50 Freq: Status: Active Protocol: Document 08/09/23 13:02 LRN (Rec: 08/09/23 13:46 LRN [id number]) OP-PT Subjective Patient Comments Patient Comments Using IBS rehan for deep breathing daily. No change with BM frequency or pain in abdomen. States she tried doing Bowel massage sitting and sitting longer, but no change. BM's 4-5 in AM. After bowel movements at end of AM didn't have abdominal pain. Has been exercising more daily. PT-OP-I Pelvic Floor Start: 07/05/23 17:50 Freq: Status: Active Protocol: Document 08/03/23 13:02 LRN (Rec: 08/03/23 14:19 LRN [id number]) Pelvic Floor Assessment SEMG (uV) Baseline 0.4 Quick Contraction 13.5 10 Second Contraction 11.5 Recruitment Pattern Good Relaxation Fair Holding Fair Stability of Hold Poor/Slow SEMG Stability of Rest Good Comments Pelvic Floor Comments Quick Flicks: With substitute ms noted: 10 reps strength (uV's): avg work 14.5, avg rest 6.4. 20 reps strength (uV's): avg work 15.7, avg rest 6.3. Without Substitute Muscles: 10 reps strength (uV's): avg work 13.5, avg rest 4.6. 20 reps strength (uV's): avg work 12.9, avg rest 3.7. Long Holds: 10 reps strength (uV's): avg work 11.5, avg rest 10.1. 20 reps strength (uV's): avg work 10.1, avg rest 0.8. PT-OP-J Posture/Palpation/Skin Start: 07/05/23 17:50 Freq: Status: Active Protocol: Document 07/19/23 13:48 LRN (Rec: 07/19/23 16:40 LRN [id number]) Posture Evaluation Position Standing T-Spine Posture Increased Kyphosis L-Spine Posture Increased Lordosis Knee Posture (R) Genu Recurvatum Comments Posture Comments L/S curve pivot point at L4-L5 , Sacrum is flattened. PT-OP-K Range of Motion Start: 07/05/23 17:50 Freq: Status: Active Protocol: Document 07/19/23 13:48 LRN (Rec: 07/19/23 16:40 LRN [id number]) Lumbar Spine Range of Motion Lumbar Spine Active Degrees Testing Position Standing Flexion 110 Extension 12 Rotation Left 20 Rotation Right 40 Lateral Flexion Left 5 Lateral Flexion Right 5 Hip Goniometric Range of Motion Hip Right Passive Testing Position Supine Internal Rotation 20 External Rotation 50 Left Passive Testing Position Supine Internal Rotation 30 External Rotation 50 PT-OP-M Strength Start: 07/05/23 17:50 Freq: Status: Active Protocol: Document 07/19/23 13:48 LRN (Rec: 07/19/23 16:40 LRN [id number]) Trunk Strength Trunk Manual Muscle Testing Core Stabilization Good Hip Strength Hip Manual Muscle Testing Right Comments Generally 5/5 Left Comments Generally 5/5 PT-OP-Q Treatments Start: 07/05/23 17:50 Freq: Status: Active Protocol: Document 08/09/23 13:02 LRN (Rec: 08/09/23 13:46 LRN [id number]) Therapeutic Exercises Supine Exercises Fig 4 stretch Supine Exercise Name Fig 4 stretch Side bilateral Reps/Minutes 5' Piriformis Supine Exercise Name Piriformis stretch Side bilateral Equipment Used towel assist w/L hip stretch Reps/Minutes 5' KTC stretch Supine Exercise Name SKTC & DKTC stretch Side bilateral Reps/Minutes 9' Happy Baby Pose Supine Exercise Name Happy Baby Pose Reps/Minutes 4' Comments Cued to relax PF, breathe slow -deep breathing. Prone Exercises TRIPP Prone Exercise Name TRIPP for abdominal stretch Reps/Minutes 5' Comments Cued to stretch abdomen and PF with breath. Extra time to coord activity Self-Care/Home Management Treatment Education Patient Education Home Exercise Program Other Education Discussed how she is diong her bowel movements, relaxating, warm water intake. Discussed pt diet of non- gluten and non-lactose that would possibly be beneficial to reduce GI inflammation, and removal of gall bladder 2017, that she was told it was moderately inflammed. Discussed pt bowel history, [id number] struggeled with constipation. Less abdominal pain with start of exercise. Activities Self-Care/Home Management Activities Issued HEP: Hip stretches: Piriformis (knee to opp shldr) , Fig 4, Lateral Hip stretch; TRIPP abdominal stretch. PT-OP-T Assessment and Plan Start: 07/05/23 17:50 Freq: Status: Active Protocol: Document 08/09/23 13:02 LRN (Rec: 08/09/23 13:46 LRN [id number]) Physical Therapy Assessment Goals Three Impairment Abdominal pain with bowel movments Short Term Goal (STG) Pt will be educated in best positioning for bowel movement . 08/09/23: Educated pt in use of squatty potty and sitting upright on toilet for BM. Pt reports she uses shoe boxes instead of squatty potty. STG Duration 6 wks-08/31/23 (08/09/23: MET GOAL) Correction Goal (LTG) Pt will have less onset of abdominal pain with bowel movements. 08/09/23: Pt reporting less abdominal pain w/BM's with exercising (eliptical runner, wgt lifting, stretching machines, will be adding yoga and swim). LTG Duration 12 wks-10/12/23 improved w/ exer 08/09/23. Two Impairment Increased frequency of bowel movements daily. Impairment Pt has 6-8 BMs in AM daily, type 5 & 6. Short Term Goal (STG) Decrease number of BMs in the morning. 08/09/23: BM's mostly type 5 this week, in AM; finishing earler in the morning. STG Duration 6 wks-08/31/23 progressed Correction Goal (LTG) Improve normal bowel movements to lessen time of voiding to make travelng easier LTG Duration 12 wks-10/12/23 One Impairment HEP Short Term Goal (STG) Pt will be educated in Bowel program and Bowel massage. 08/03/23: Pt educated in Bowel program and Bowel massage. STG Duration 6 wks-08/31/23 (08/03/23: MET GOAL) Broadcast Designer Goal (LTG) Pt will be educated in self care HEP of abdominal, PF, hip stretches, deep breathing, proper posturing and low back care. 07/26/23: HEP: Happy Baby Pose. 08/09/23: HEP: TRIPP-abdominal stretch; Hip stretches: Moshe Piriformis (knee to opp shdr), Lateral Hip, Fig 4 LTG Duration 12 wks-10/12/23 progressed on 08/09/23 Assessment Summary Assessment 73 yo female with frequency of bowel movements (6-8) daily since onset of IBS in 2018, bowel types 5 & 6. Pt today reports she is not eating gluten and lactose. 5 BM's daily this past week, stool type 5 except today diahrrea like. Good tolerance to new hip and abdominal stretching. Pt will propable need posterior PF/anal stretching for better stool elimination. Physical Therapy Plan Frequency and Duration Frequency of Treatment 1x/Week Duration of treatment (weeks) 12 Plan of Care Start Date 07/19/23 Plan of Care End Date 10/12/23 Next Visit Focus/Plan Next Note Type Treatment Note Next Visit Plan Next: Training to relax PF, neuro reeducation - coordination of PF contractions w/ms relaxation, breathing coordination with ex and activities, educ in vulvar/perineal care, and therapeutic ex (posterior PF/ anal stretch, L trunk rot stretch), and posture training . Manual: abdominal mobility and if needed: STM of abdomen (and urachus) & bladder mobility POC: Pt education, Manual therapy. Biofeedback with vaginal sensor for PF relaxation awareness, Therapeutic Exercises, Therapeutic Activities, Neuromuscular Reeducation.
--- NOTE | 2023-08-16 15:19 | PT.OTN ---
Current Diagnoses Functional diarrhea (08/16/23) Low back pain, unspecified (08/16/23) Other specified disorders of muscle (08/16/23) Unspecified abdominal pain (08/16/23) Physical Therapy Treatment Note PT-OP-A Visit Information Start: 07/05/23 17:50 Freq: Status: Active Protocol: Document 08/16/23 13:05 LRN (Rec: 08/16/23 13:50 LRN [id number]) Out-Patient Physical Therapy Visit Information Visit Information Visit Type Treatment Note Visit Start Time 13:05 Visit Stop Time 13:45 Visit Number 5 Evaluation Information Evaluation Date 07/19/23 Precautions Precautions Intermittent Low back and now mid back pain possibly from IBS (03/2016), Osteoporosis, 3 surgeries for L tibial plateau fx, f/b L TKA 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 Osteoporosis . PT-OP-B Current Condition Start: 07/05/23 17:50 Freq: Status: Active Protocol: Document 07/19/23 13:48 LRN (Rec: 07/19/23 16:40 LRN [id number]) Current Condition History of Current Condition Onset Date 03/2016 Current Complaints PF ms not working properly, BM's 4-8x in morning. Pain associated w/BMs History of Current Condition Daily IBS pain and weird bowel habits that started 04/2018. Has 4-8 BM's in AM daily, wakes every morning with pain in intestines at 4:30 am, wakes by 5:30 am. Takes 2 hrs to push out fecal material. Can't be horizontal except for 5 hrs at a time. Pt states she was referred by GI physician due to the IBS. Treatment to use PF ms treatment with biofeedback to train her to properly push out fecal material better. Doesn't want to focus on urinary problems. Prior Treatments and Tests None. Takes double Miralax daily. Eats salads and food for fiber due to IBS. Developmental History Developmental History 2017 had normal bowel movements, daily. IBS thought caused by bacterial infections. Started as severe diahrrea and moved into cramping all the time. Treatment Goals Patient/Caregiver Goals Pt goal: Able to reduce the number of BMs in morning, BM's w/o pain. Make travelling easier to have more normal bowel mvmts w/o pain. Doesn' t want to focus on urinary problems. Personal Factors Other Personal Factors That May Effect IBS, LBP, Osteoporosis, multi Therapy/Recovery surgeries on L knee. PT-OP-C Subjective Start: 07/05/23 17:50 Freq: Status: Active Protocol: Document 08/16/23 13:05 LRN (Rec: 08/16/23 13:50 LRN [id number]) OP-PT Subjective Patient Comments Patient Comments States she wasn't clear about the ex's last session. Has been doing yoga and did hip work. Her back has not been hurting as much. Today is having stomach, IBS R lower abdominal pain and R LBP, thinks its associated to IBS. PT-OP-I Pelvic Floor Start: 07/05/23 17:50 Freq: Status: Active Protocol: Document 08/03/23 13:02 LRN (Rec: 08/03/23 14:19 LRN [id number]) Pelvic Floor Assessment SEMG (uV) Baseline 0.4 Quick Contraction 13.5 10 Second Contraction 11.5 Recruitment Pattern Good Relaxation Fair Holding Fair Stability of Hold Poor/Slow SEMG Stability of Rest Good Comments Pelvic Floor Comments Quick Flicks: With substitute ms noted: 10 reps strength (uV's): avg work 14.5, avg rest 6.4. 20 reps strength (uV's): avg work 15.7, avg rest 6.3. Without Substitute Muscles: 10 reps strength (uV's): avg work 13.5, avg rest 4.6. 20 reps strength (uV's): avg work 12.9, avg rest 3.7. Long Holds: 10 reps strength (uV's): avg work 11.5, avg rest 10.1. 20 reps strength (uV's): avg work 10.1, avg rest 0.8. PT-OP-J Posture/Palpation/Skin Start: 07/05/23 17:50 Freq: Status: Active Protocol: Document 07/19/23 13:48 LRN (Rec: 07/19/23 16:40 LRN [id number]) Posture Evaluation Position Standing T-Spine Posture Increased Kyphosis L-Spine Posture Increased Lordosis Knee Posture (R) Genu Recurvatum Comments Posture Comments L/S curve pivot point at L4-L5 , Sacrum is flattened. PT-OP-K Range of Motion Start: 07/05/23 17:50 Freq: Status: Active Protocol: Document 07/19/23 13:48 LRN (Rec: 07/19/23 16:40 LRN [id number]) Lumbar Spine Range of Motion Lumbar Spine Active Degrees Testing Position Standing Flexion 110 Extension 12 Rotation Left 20 Rotation Right 40 Lateral Flexion Left 5 Lateral Flexion Right 5 Hip Goniometric Range of Motion Hip Right Passive Testing Position Supine Internal Rotation 20 External Rotation 50 Left Passive Testing Position Supine Internal Rotation 30 External Rotation 50 PT-OP-M Strength Start: 07/05/23 17:50 Freq: Status: Active Protocol: Document 07/19/23 13:48 LRN (Rec: 07/19/23 16:40 LRN [id number]) Trunk Strength Trunk Manual Muscle Testing Core Stabilization Good Hip Strength Hip Manual Muscle Testing Right Comments Generally 5/5 Left Comments Generally 5/5 PT-OP-Q Treatments Start: 07/05/23 17:50 Freq: Status: Active Protocol: Document 08/16/23 13:05 LRN (Rec: 08/16/23 13:50 LRN [id number]) Therapeutic Exercises Supine Exercises Iliopsoas stretch Supine Exercise Name Herminio Test position stretch Side bilateral Reps/Minutes 3' Comments Cued to sitting at end of plinth for hip stretch, breath to PF relax. Lateral Hip stretch Supine Exercise Name Lateral Hip stretch Side bilateral Reps/Minutes 10' Comments Extra time taken on LLE to modify stretch to eliminate knee pn Fig 4 stretch Supine Exercise Name Fig 4 stretch Side bilateral Reps/Minutes 4' Piriformis Supine Exercise Name Piriformis stretch - knee to opp shdr Side bilateral Reps/Minutes 9' Comments xtra time to educ pt in proper position for stretch to prevent L knee pain KTC stretch Supine Exercise Name SKTC & DKTC stretch Side bilateral Reps/Minutes 6' Comments Pt cued after 60 sec hold each Happy Baby Pose Supine Exercise Name Happy Baby Pose Reps/Minutes 3' Comments Cued to relax PF, breathe slow -deep breathing. PT-OP-T Assessment and Plan Start: 07/05/23 17:50 Freq: Status: Active Protocol: Document 08/16/23 13:05 LRN (Rec: 08/16/23 13:50 LRN [id number]) Physical Therapy Assessment Goals Three Impairment Abdominal pain with bowel movments Short Term Goal (STG) Pt will be educated in best positioning for bowel movement . 08/09/23: Educated pt in use of squatty potty and sitting upright on toilet for BM. Pt reports she uses shoe boxes instead of squatty potty. STG Duration 6 wks-08/31/23 (08/09/23: MET GOAL) Half-Way Goal (LTG) Pt will have less onset of abdominal pain with bowel movements. 08/09/23: Pt reporting less abdominal pain w/BM's with exercising (eliptical runner, wgt lifting, stretching machines, will be adding yoga and swim). LTG Duration 12 wks-10/12/23 improved w/ exer 08/09/23. Two Impairment Increased frequency of bowel movements daily. Impairment Pt has 6-8 BMs in AM daily, type 5 & 6. Short Term Goal (STG) Decrease number of BMs in the morning. 08/09/23: BM's mostly type 5 this week, in AM; finishing earler in the morning. STG Duration 6 wks-08/31/23 progressed Half-Way Goal (LTG) Improve normal bowel movements to lessen time of voiding to make travelng easier LTG Duration 12 wks-10/12/23 One Impairment HEP Short Term Goal (STG) Pt will be educated in Bowel program and Bowel massage. 08/03/23: Pt educated in Bowel program and Bowel massage. STG Duration 6 wks-08/31/23 (08/03/23: MET GOAL) Half-Way Goal (LTG) Pt will be educated in self care HEP of abdominal, PF, hip stretches, deep breathing, proper posturing and low back care. 07/26/23: HEP: Happy Baby Pose. 08/09/23: HEP: TRIPP-abdominal stretch; Hip stretches: Moshe Piriformis (knee to opp shdr), Lateral Hip, Fig 4. 08/16/23: HEP: Iliopsoas stretch in Herminio Test position. LTG Duration 12 wks-10/12/23 progressed on 08/16/23 Assessment Summary Assessment 73 yo female with frequency of bowel movements (6-8) daily since onset of IBS in 2018, bowel types 5 & 6. Pt having less LBP since stretching. Today, R lower abdominal and LB pain that is probably associated to her IBS, was reduced with PT abdominal, PF (stretch w/breathe) & hip stretching. Visit spent reviewing her HEP. Physical Therapy Plan Frequency and Duration Frequency of Treatment 1x/Week Duration of treatment (weeks) 12 Plan of Care Start Date 07/19/23 Plan of Care End Date 10/12/23 Next Visit Focus/Plan Next Note Type Treatment Note Next Visit Plan Next: Training to relax PF, neuro reeducation - coordination of PF contractions w/ms relaxation, breathing coordination with ex and activities, educ in vulvar/perineal care, and therapeutic ex (posterior PF/ anal stretch, L trunk rot stretch), and posture training . Manual: abdominal mobility and if needed: STM of abdomen (and urachus) & bladder mobility POC: Pt education, Manual therapy. Biofeedback with vaginal sensor for PF relaxation awareness, Therapeutic Exercises, Therapeutic Activities, Neuromuscular Reeducation.
--- NOTE | 2023-08-27 16:51 | PT.OTN ---
Current Diagnoses Functional diarrhea (08/27/23) Low back pain, unspecified (08/27/23) Other specified disorders of muscle (08/27/23) Unspecified abdominal pain (08/27/23) Physical Therapy Treatment Note PT-OP-A Visit Information Start: 07/05/23 17:50 Freq: Status: Active Protocol: Document 08/27/23 13:49 LRN (Rec: 08/27/23 14:31 LRN [id number]) Out-Patient Physical Therapy Visit Information Visit Information Visit Type Treatment Note Visit Start Time 13:49 Visit Stop Time 14:28 Visit Number 6 Evaluation Information Evaluation Date 07/19/23 Precautions Precautions Intermittent Low back and now mid back pain possibly from IBS (03/2016), Osteoporosis, 3 surgeries for L tibial plateau fx, f/b L TKA 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 Osteoporosis . PT-OP-B Current Condition Start: 07/05/23 17:50 Freq: Status: Active Protocol: Document 07/19/23 13:48 LRN (Rec: 07/19/23 16:40 LRN [id number]) Current Condition History of Current Condition Onset Date 03/2016 Current Complaints PF ms not working properly, BM's 4-8x in morning. Pain associated w/BMs History of Current Condition Daily IBS pain and weird bowel habits that started 04/2018. Has 4-8 BM's in AM daily, wakes every morning with pain in intestines at 4:30 am, wakes by 5:30 am. Takes 2 hrs to push out fecal material. Can't be horizontal except for 5 hrs at a time. Pt states she was referred by GI physician due to the IBS. Treatment to use PF ms treatment with biofeedback to train her to properly push out fecal material better. Doesn't want to focus on urinary problems. Prior Treatments and Tests None. Takes double Miralax daily. Eats salads and food for fiber due to IBS. Developmental History Developmental History 2017 had normal bowel movements, daily. IBS thought caused by bacterial infections. Started as severe diahrrea and moved into cramping all the time. Treatment Goals Patient/Caregiver Goals Pt goal: Able to reduce the number of BMs in morning, BM's w/o pain. Make travelling easier to have more normal bowel mvmts w/o pain. Doesn' t want to focus on urinary problems. Personal Factors Other Personal Factors That May Effect IBS, LBP, Osteoporosis, multi Therapy/Recovery surgeries on L knee. PT-OP-C Subjective Start: 07/05/23 17:50 Freq: Status: Active Protocol: Document 08/27/23 13:49 LRN (Rec: 08/27/23 14:31 LRN [id number]) OP-PT Subjective Patient Comments Patient Comments Have had better weeks. Family stress and physically with IBS, it has physically been difficult. Doing exer's every other day because L knee has been bothering her. Today stomach has been painful . Not sleeping well, but last night got good sleep. PT-OP-I Pelvic Floor Start: 07/05/23 17:50 Freq: Status: Active Protocol: Document 08/03/23 13:02 LRN (Rec: 08/03/23 14:19 LRN [id number]) Pelvic Floor Assessment SEMG (uV) Baseline 0.4 Quick Contraction 13.5 10 Second Contraction 11.5 Recruitment Pattern Good Relaxation Fair Holding Fair Stability of Hold Poor/Slow SEMG Stability of Rest Good Comments Pelvic Floor Comments Quick Flicks: With substitute ms noted: 10 reps strength (uV's): avg work 14.5, avg rest 6.4. 20 reps strength (uV's): avg work 15.7, avg rest 6.3. Without Substitute Muscles: 10 reps strength (uV's): avg work 13.5, avg rest 4.6. 20 reps strength (uV's): avg work 12.9, avg rest 3.7. Long Holds: 10 reps strength (uV's): avg work 11.5, avg rest 10.1. 20 reps strength (uV's): avg work 10.1, avg rest 0.8. PT-OP-J Posture/Palpation/Skin Start: 07/05/23 17:50 Freq: Status: Active Protocol: Document 07/19/23 13:48 LRN (Rec: 07/19/23 16:40 LRN [id number]) Posture Evaluation Position Standing T-Spine Posture Increased Kyphosis L-Spine Posture Increased Lordosis Knee Posture (R) Genu Recurvatum Comments Posture Comments L/S curve pivot point at L4-L5 , Sacrum is flattened. PT-OP-K Range of Motion Start: 07/05/23 17:50 Freq: Status: Active Protocol: Document 07/19/23 13:48 LRN (Rec: 07/19/23 16:40 LRN [id number]) Lumbar Spine Range of Motion Lumbar Spine Active Degrees Testing Position Standing Flexion 110 Extension 12 Rotation Left 20 Rotation Right 40 Lateral Flexion Left 5 Lateral Flexion Right 5 Hip Goniometric Range of Motion Hip Right Passive Testing Position Supine Internal Rotation 20 External Rotation 50 Left Passive Testing Position Supine Internal Rotation 30 External Rotation 50 PT-OP-M Strength Start: 07/05/23 17:50 Freq: Status: Active Protocol: Document 07/19/23 13:48 LRN (Rec: 07/19/23 16:40 LRN [id number]) Trunk Strength Trunk Manual Muscle Testing Core Stabilization Good Hip Strength Hip Manual Muscle Testing Right Comments Generally 5/5 Left Comments Generally 5/5 PT-OP-Q Treatments Start: 07/05/23 17:50 Freq: Status: Active Protocol: Document 08/27/23 13:49 LRN (Rec: 08/27/23 14:31 LRN [id number]) Therapeutic Exercises Supine Exercises Deep Breathing Supine Exercise Name Deep Breathing (Box Breathing) Reps/Minutes 3' Other Exercises Child's Pose Other Exercise Name Child's pose over wedge/pillow , first attempted over wedge/ bolster 2 pillow Reps/Minutes 8' Comments Pt needed cuing for 6 in/out breath. Self-Care/Home Management Treatment Education Other Education Reviewed bladder diary and discussed at length her diet and foods, recommending eliminating cookies, dairy, and sugar. Recommended soup- stuff for breakfast. Pt had Question regarding breathing mechanics. Discussed why the recommendation of breathing in through nose and out through mouth. Pt describing her difficult past week needing to to discuss deaths of people and aquaintances, recommended pt do more deep breathing to decrease stress. Issued & briefly discussed vulvar and genital care handouts after pt review. Activities Self-Care/Home Management Activities Issued Vulvar and Genital care handouts. Issued Supported Child's Pose with Diaphragmatic Breathing. PT-OP-T Assessment and Plan Start: 07/05/23 17:50 Freq: Status: Active Protocol: Document 08/27/23 13:49 LRN (Rec: 08/27/23 14:31 LRN [id number]) Physical Therapy Assessment Goals Three Impairment Abdominal pain with bowel movments Short Term Goal (STG) Pt will be educated in best positioning for bowel movement . 08/09/23: Educated pt in use of squatty potty and sitting upright on toilet for BM. Pt reports she uses shoe boxes instead of squatty potty. STG Duration 6 wks-08/31/23 (08/09/23: MET GOAL) Usp Goal (LTG) Pt will have less onset of abdominal pain with bowel movements. 08/09/23: Pt reporting less abdominal pain w/BM's with exercising (eliptical runner, wgt lifting, stretching machines, will be adding yoga and swim). LTG Duration 12 wks-10/12/23 improved w/ exer 08/09/23. Two Impairment Increased frequency of bowel movements daily. Impairment Pt has 6-8 BMs in AM daily, type 5 & 6. Short Term Goal (STG) Decrease number of BMs in the morning. 08/09/23: BM's mostly type 5 this week, in AM; finishing earler in the morning. STG Duration 6 wks-08/31/23 progressed Artifacts Conservator Goal (LTG) Improve normal bowel movements to lessen time of voiding to make travelng easier LTG Duration 12 wks-10/12/23 One Impairment HEP Short Term Goal (STG) Pt will be educated in Bowel program and Bowel massage. 08/03/23: Pt educated in Bowel program and Bowel massage. STG Duration 6 wks-08/31/23 (08/03/23: MET GOAL) Usp Goal (LTG) Pt will be educated in self care HEP of abdominal, PF, hip stretches, deep breathing, proper posturing and low back care. 07/26/23: HEP: Happy Baby Pose. 08/09/23: HEP: TRIPP-abdominal stretch; Hip stretches: Moshe Piriformis (knee to opp shdr), Lateral Hip, Fig 4. 08/16/23: HEP: Iliopsoas stretch in Herminio Test position. LTG Duration 12 wks-10/12/23 progressed on 08/16/23 Assessment Summary Assessment 73 yo female with frequency of bowel movements (6-8) daily since onset of IBS in 2018, bowel types 5 & 6. Pt deep breaths supine w/shallow abdomen mvmt. Breathing in Child's Pose over wedge/pillow is best position to get best deep breathing; needed cuing to slow inbreath/speed up outbreath and more abdominal excursion. Slow progress with pt needing discussion on topics prior and throughout therapy. Physical Therapy Plan Frequency and Duration Frequency of Treatment 1x/Week Duration of treatment (weeks) 12 Plan of Care Start Date 07/19/23 Plan of Care End Date 10/12/23 Next Visit Focus/Plan Next Note Type Treatment Note Next Visit Plan Next: Review Supported Child' s Pose ex. Start Training to relax PF, neuro reeducation - coordination of PF contractions w/ms relaxation, breathing coordination with ex and activities, and therapeutic ex (posterior PF/ anal stretch, L trunk rot stretch), and posture training . Manual: abdominal mobility and if needed: STM of abdomen (and urachus) & bladder mobility POC: Pt education, Manual therapy. Biofeedback with vaginal sensor for PF relaxation awareness, Therapeutic Exercises, Therapeutic Activities, Neuromuscular Reeducation.
--- NOTE | 2023-09-04 14:02 | PT.OTN ---
Current Diagnoses Functional diarrhea (09/04/23) Low back pain, unspecified (09/04/23) Other specified disorders of muscle (09/04/23) Unspecified abdominal pain (09/04/23) Physical Therapy Treatment Note PT-OP-A Visit Information Start: 07/05/23 17:50 Freq: Status: Active Protocol: Document 09/04/23 13:12 LRN (Rec: 09/04/23 13:48 LRN [id number]) Out-Patient Physical Therapy Visit Information Visit Information Visit Type Treatment Note Visit Start Time 13:13 Visit Stop Time 13:46 Visit Number 7 Evaluation Information Evaluation Date 07/19/23 Precautions Precautions Intermittent Low back and now mid back pain possibly from IBS (03/2016), Osteoporosis, 3 surgeries for L tibial plateau fx, f/b L TKA 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 Osteoporosis . PT-OP-B Current Condition Start: 07/05/23 17:50 Freq: Status: Active Protocol: Document 07/19/23 13:48 LRN (Rec: 07/19/23 16:40 LRN [id number]) Current Condition History of Current Condition Onset Date 03/2016 Current Complaints PF ms not working properly, BM's 4-8x in morning. Pain associated w/BMs History of Current Condition Daily IBS pain and weird bowel habits that started 04/2018. Has 4-8 BM's in AM daily, wakes every morning with pain in intestines at 4:30 am, wakes by 5:30 am. Takes 2 hrs to push out fecal material. Can't be horizontal except for 5 hrs at a time. Pt states she was referred by GI physician due to the IBS. Treatment to use PF ms treatment with biofeedback to train her to properly push out fecal material better. Doesn't want to focus on urinary problems. Prior Treatments and Tests None. Takes double Miralax daily. Eats salads and food for fiber due to IBS. Developmental History Developmental History 2017 had normal bowel movements, daily. IBS thought caused by bacterial infections. Started as severe diahrrea and moved into cramping all the time. Treatment Goals Patient/Caregiver Goals Pt goal: Able to reduce the number of BMs in morning, BM's w/o pain. Make travelling easier to have more normal bowel mvmts w/o pain. Doesn' t want to focus on urinary problems. Personal Factors Other Personal Factors That May Effect IBS, LBP, Osteoporosis, multi Therapy/Recovery surgeries on L knee. PT-OP-C Subjective Start: 07/05/23 17:50 Freq: Status: Active Protocol: Document 09/04/23 13:12 LRN (Rec: 09/04/23 13:48 LRN [id number]) OP-PT Subjective Patient Comments Patient Comments Just finished an hour of deep breathing and yoga. PT-OP-I Pelvic Floor Start: 07/05/23 17:50 Freq: Status: Active Protocol: Document 08/03/23 13:02 LRN (Rec: 08/03/23 14:19 LRN [id number]) Pelvic Floor Assessment SEMG (uV) Baseline 0.4 Quick Contraction 13.5 10 Second Contraction 11.5 Recruitment Pattern Good Relaxation Fair Holding Fair Stability of Hold Poor/Slow SEMG Stability of Rest Good Comments Pelvic Floor Comments Quick Flicks: With substitute ms noted: 10 reps strength (uV's): avg work 14.5, avg rest 6.4. 20 reps strength (uV's): avg work 15.7, avg rest 6.3. Without Substitute Muscles: 10 reps strength (uV's): avg work 13.5, avg rest 4.6. 20 reps strength (uV's): avg work 12.9, avg rest 3.7. Long Holds: 10 reps strength (uV's): avg work 11.5, avg rest 10.1. 20 reps strength (uV's): avg work 10.1, avg rest 0.8. PT-OP-J Posture/Palpation/Skin Start: 07/05/23 17:50 Freq: Status: Active Protocol: Document 07/19/23 13:48 LRN (Rec: 07/19/23 16:40 LRN [id number]) Posture Evaluation Position Standing T-Spine Posture Increased Kyphosis L-Spine Posture Increased Lordosis Knee Posture (R) Genu Recurvatum Comments Posture Comments L/S curve pivot point at L4-L5 , Sacrum is flattened. PT-OP-K Range of Motion Start: 07/05/23 17:50 Freq: Status: Active Protocol: Document 07/19/23 13:48 LRN (Rec: 07/19/23 16:40 LRN [id number]) Lumbar Spine Range of Motion Lumbar Spine Active Degrees Testing Position Standing Flexion 110 Extension 12 Rotation Left 20 Rotation Right 40 Lateral Flexion Left 5 Lateral Flexion Right 5 Hip Goniometric Range of Motion Hip Right Passive Testing Position Supine Internal Rotation 20 External Rotation 50 Left Passive Testing Position Supine Internal Rotation 30 External Rotation 50 PT-OP-M Strength Start: 07/05/23 17:50 Freq: Status: Active Protocol: Document 07/19/23 13:48 LRN (Rec: 07/19/23 16:40 LRN [id number]) Trunk Strength Trunk Manual Muscle Testing Core Stabilization Good Hip Strength Hip Manual Muscle Testing Right Comments Generally 5/5 Left Comments Generally 5/5 PT-OP-Q Treatments Start: 07/05/23 17:50 Freq: Status: Active Protocol: Document 09/04/23 13:12 LRN (Rec: 09/04/23 13:48 LRN [id number]) Therapeutic Exercises Supine Exercises Kegel in isolation Reps/Minutes 4' Comments Cued to keep gluteals, and hip AD still Deep Breathing Supine Exercise Name Deep Breathing (Box Breathing) Reps/Minutes 3' Iliopsoas stretch Supine Exercise Name Herminio Test position stretch Side bilateral Reps/Minutes 3' (5-6 Deep breath holds each ) Comments Cued to sitting at end of plinth for hip stretch, breath to PF relax. Lateral Hip stretch Supine Exercise Name Lateral Hip stretch Side bilateral Reps/Minutes 4' Comments Extra time taken on LLE to modify stretch to eliminate knee pn Fig 4 stretch Supine Exercise Name Fig 4 stretch Side bilateral Reps/Minutes 4' Comments Extra time taken on LLE to modify stretch to eliminate knee pn KTC stretch Supine Exercise Name DKTC stretch Side bilateral Reps/Minutes 2 breath hold x 6 Other Exercises Child's Pose Other Exercise Name Child's pose: pillow behind knees, head on plinth Reps/Minutes 2' (5 breaths) Comments Extra time for positioning and needed cuing for deep breaths . Therapeutic Activity Therapeutic Activity Transfer w/breathwork Name Stand<>sit<>sidelie<>sup Reps/Minutes 8' Comments Discussion of use of breathwork for transfers, ADLs , and her exercises, when to exhale. PT-OP-T Assessment and Plan Start: 07/05/23 17:50 Freq: Status: Active Protocol: Document 09/04/23 13:12 LRN (Rec: 09/04/23 13:48 LRN [id number]) Physical Therapy Assessment Goals Three Impairment Abdominal pain with bowel movments Short Term Goal (STG) Pt will be educated in best positioning for bowel movement . 08/09/23: Educated pt in use of squatty potty and sitting upright on toilet for BM. Pt reports she uses shoe boxes instead of squatty potty. STG Duration 6 wks-08/31/23 (08/09/23: MET GOAL) Codifier Goal (LTG) Pt will have less onset of abdominal pain with bowel movements. 08/09/23: Pt reporting less abdominal pain w/BM's with exercising (eliptical runner, wgt lifting, stretching machines, will be adding yoga and swim). LTG Duration 12 wks-10/12/23 improved w/ exer 08/09/23. Two Impairment Increased frequency of bowel movements daily. Impairment Pt has 6-8 BMs in AM daily, type 5 & 6. Short Term Goal (STG) Decrease number of BMs in the morning. 08/09/23: BM's mostly type 5 this week, in AM; finishing earler in the morning. STG Duration 6 wks-08/31/23 progressed Fpc Goal (LTG) Improve normal bowel movements to lessen time of voiding to make travelng easier LTG Duration 12 wks-10/12/23 One Impairment HEP Short Term Goal (STG) Pt will be educated in Bowel program and Bowel massage. 08/03/23: Pt educated in Bowel program and Bowel massage. STG Duration 6 wks-08/31/23 (08/03/23: MET GOAL) Codifier Goal (LTG) Pt will be educated in self care HEP of abdominal, PF, hip stretches, deep breathing, proper posturing and low back care. 07/26/23: HEP: Happy Baby Pose. 08/09/23: HEP: TRIPP-abdominal stretch; Hip stretches: Moshe Piriformis (knee to opp shdr), Lateral Hip, Fig 4. 08/16/23: HEP: Iliopsoas stretch in Herminio Test position. LTG Duration 12 wks-10/12/23 progressed on 08/16/23 Assessment Summary Assessment Pt is 13 minutes late. Pt is a 73 yo female with frequency of bowel movements (6-8) daily since onset of IBS in 2018, bowel types 5 & 6. The pt is still showing increased bowel movement frequency first in the morning with 3-5 BM's daily all from ~7-10am. She demonstrates improved deep breathing technique, appropriate child pose positioning, and improved tolerance to hip stretches w/o knee pain complaints, possibly due to pt just completing a yoga workout. Very good understanding of core pressure mgmt through breathwork. Physical Therapy Plan Frequency and Duration Frequency of Treatment 1x/Week Duration of treatment (weeks) 12 Plan of Care Start Date 07/19/23 Plan of Care End Date 10/12/23 Next Visit Focus/Plan Next Note Type Treatment Note Next Visit Plan Next: Pt stretching at home mostly. Start Training to relax PF, neuro reeducation - coordination of PF contractions w/ms relaxation, breathing coordination with posterior PF/anal stretch, add L trunk rot stretch, and posture training. Manual: abdominal mobility and if needed: STM of abdomen (and urachus) & bladder mobility POC: Pt education, Manual therapy. Biofeedback with vaginal sensor for PF relaxation awareness, Therapeutic Exercises, Therapeutic Activities, Neuromuscular Reeducation.
--- NOTE | 2023-09-04 16:23 | PT.OTN ---
Current Diagnoses Functional diarrhea (09/04/23) Low back pain, unspecified (09/04/23) Other specified disorders of muscle (09/04/23) Unspecified abdominal pain (09/04/23) Physical Therapy Treatment Note PT-OP-A Visit Information Start: 07/05/23 17:50 Freq: Status: Active Protocol: Document 09/04/23 13:12 LRN (Rec: 09/04/23 13:48 LRN [id number]) Out-Patient Physical Therapy Visit Information Visit Information Visit Type Treatment Note Visit Start Time 13:13 Visit Stop Time 13:46 Visit Number 7 Evaluation Information Evaluation Date 07/19/23 Precautions Precautions Intermittent Low back and now mid back pain possibly from IBS (03/2016), Osteoporosis, 3 surgeries for L tibial plateau fx, f/b L TKA 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 Osteoporosis . PT-OP-B Current Condition Start: 07/05/23 17:50 Freq: Status: Active Protocol: Document 07/19/23 13:48 LRN (Rec: 07/19/23 16:40 LRN [id number]) Current Condition History of Current Condition Onset Date 03/2016 Current Complaints PF ms not working properly, BM's 4-8x in morning. Pain associated w/BMs History of Current Condition Daily IBS pain and weird bowel habits that started 04/2018. Has 4-8 BM's in AM daily, wakes every morning with pain in intestines at 4:30 am, wakes by 5:30 am. Takes 2 hrs to push out fecal material. Can't be horizontal except for 5 hrs at a time. Pt states she was referred by GI physician due to the IBS. Treatment to use PF ms treatment with biofeedback to train her to properly push out fecal material better. Doesn't want to focus on urinary problems. Prior Treatments and Tests None. Takes double Miralax daily. Eats salads and food for fiber due to IBS. Developmental History Developmental History 2017 had normal bowel movements, daily. IBS thought caused by bacterial infections. Started as severe diahrrea and moved into cramping all the time. Treatment Goals Patient/Caregiver Goals Pt goal: Able to reduce the number of BMs in morning, BM's w/o pain. Make travelling easier to have more normal bowel mvmts w/o pain. Doesn' t want to focus on urinary problems. Personal Factors Other Personal Factors That May Effect IBS, LBP, Osteoporosis, multi Therapy/Recovery surgeries on L knee. PT-OP-C Subjective Start: 07/05/23 17:50 Freq: Status: Active Protocol: Document 09/04/23 13:12 LRN (Rec: 09/04/23 13:48 LRN [id number]) OP-PT Subjective Patient Comments Patient Comments Just finished an hour of deep breathing and yoga. PT-OP-I Pelvic Floor Start: 07/05/23 17:50 Freq: Status: Active Protocol: Document 08/03/23 13:02 LRN (Rec: 08/03/23 14:19 LRN [id number]) Pelvic Floor Assessment SEMG (uV) Baseline 0.4 Quick Contraction 13.5 10 Second Contraction 11.5 Recruitment Pattern Good Relaxation Fair Holding Fair Stability of Hold Poor/Slow SEMG Stability of Rest Good Comments Pelvic Floor Comments Quick Flicks: With substitute ms noted: 10 reps strength (uV's): avg work 14.5, avg rest 6.4. 20 reps strength (uV's): avg work 15.7, avg rest 6.3. Without Substitute Muscles: 10 reps strength (uV's): avg work 13.5, avg rest 4.6. 20 reps strength (uV's): avg work 12.9, avg rest 3.7. Long Holds: 10 reps strength (uV's): avg work 11.5, avg rest 10.1. 20 reps strength (uV's): avg work 10.1, avg rest 0.8. PT-OP-J Posture/Palpation/Skin Start: 07/05/23 17:50 Freq: Status: Active Protocol: Document 07/19/23 13:48 LRN (Rec: 07/19/23 16:40 LRN [id number]) Posture Evaluation Position Standing T-Spine Posture Increased Kyphosis L-Spine Posture Increased Lordosis Knee Posture (R) Genu Recurvatum Comments Posture Comments L/S curve pivot point at L4-L5 , Sacrum is flattened. PT-OP-K Range of Motion Start: 07/05/23 17:50 Freq: Status: Active Protocol: Document 07/19/23 13:48 LRN (Rec: 07/19/23 16:40 LRN [id number]) Lumbar Spine Range of Motion Lumbar Spine Active Degrees Testing Position Standing Flexion 110 Extension 12 Rotation Left 20 Rotation Right 40 Lateral Flexion Left 5 Lateral Flexion Right 5 Hip Goniometric Range of Motion Hip Right Passive Testing Position Supine Internal Rotation 20 External Rotation 50 Left Passive Testing Position Supine Internal Rotation 30 External Rotation 50 PT-OP-M Strength Start: 07/05/23 17:50 Freq: Status: Active Protocol: Document 07/19/23 13:48 LRN (Rec: 07/19/23 16:40 LRN [id number]) Trunk Strength Trunk Manual Muscle Testing Core Stabilization Good Hip Strength Hip Manual Muscle Testing Right Comments Generally 5/5 Left Comments Generally 5/5 PT-OP-Q Treatments Start: 07/05/23 17:50 Freq: Status: Active Protocol: Document 09/04/23 13:12 LRN (Rec: 09/04/23 13:48 LRN [id number]) Therapeutic Exercises Supine Exercises Kegel in isolation Reps/Minutes 4' Comments Cued to keep gluteals, and hip AD still Deep Breathing Supine Exercise Name Deep Breathing (Box Breathing) Reps/Minutes 3' Iliopsoas stretch Supine Exercise Name Herminio Test position stretch Side bilateral Reps/Minutes 3' (5-6 Deep breath holds each ) Comments Cued to sitting at end of plinth for hip stretch, breath to PF relax. Lateral Hip stretch Supine Exercise Name Lateral Hip stretch Side bilateral Reps/Minutes 4' Comments Extra time taken on LLE to modify stretch to eliminate knee pn Fig 4 stretch Supine Exercise Name Fig 4 stretch Side bilateral Reps/Minutes 4' Comments Extra time taken on LLE to modify stretch to eliminate knee pn KTC stretch Supine Exercise Name DKTC stretch Side bilateral Reps/Minutes 2 breath hold x 6 Other Exercises Child's Pose Other Exercise Name Child's pose: pillow behind knees, head on plinth Reps/Minutes 2' (5 breaths) Comments Extra time for positioning and needed cuing for deep breaths . Therapeutic Activity Therapeutic Activity Transfer w/breathwork Name Stand<>sit<>sidelie<>sup Reps/Minutes 11' Comments Discussion of use of breathwork for transfers, ADLs , and her exercises, when to exhale. PT-OP-T Assessment and Plan Start: 07/05/23 17:50 Freq: Status: Active Protocol: Document 09/04/23 13:12 LRN (Rec: 09/04/23 13:48 LRN [id number]) Physical Therapy Assessment Goals Three Impairment Abdominal pain with bowel movments Short Term Goal (STG) Pt will be educated in best positioning for bowel movement . 08/09/23: Educated pt in use of squatty potty and sitting upright on toilet for BM. Pt reports she uses shoe boxes instead of squatty potty. STG Duration 6 wks-08/31/23 (08/09/23: MET GOAL) Windows Deployment Technician Goal (LTG) Pt will have less onset of abdominal pain with bowel movements. 08/09/23: Pt reporting less abdominal pain w/BM's with exercising (eliptical runner, wgt lifting, stretching machines, will be adding yoga and swim). LTG Duration 12 wks-10/12/23 improved w/ exer 08/09/23. Two Impairment Increased frequency of bowel movements daily. Impairment Pt has 6-8 BMs in AM daily, type 5 & 6. Short Term Goal (STG) Decrease number of BMs in the morning. 08/09/23: BM's mostly type 5 this week, in AM; finishing earler in the morning. STG Duration 6 wks-08/31/23 progressed Windows Deployment Technician Goal (LTG) Improve normal bowel movements to lessen time of voiding to make travelng easier LTG Duration 12 wks-10/12/23 One Impairment HEP Short Term Goal (STG) Pt will be educated in Bowel program and Bowel massage. 08/03/23: Pt educated in Bowel program and Bowel massage. STG Duration 6 wks-08/31/23 (08/03/23: MET GOAL) Fpc Goal (LTG) Pt will be educated in self care HEP of abdominal, PF, hip stretches, deep breathing, proper posturing and low back care. 07/26/23: HEP: Happy Baby Pose. 08/09/23: HEP: TRIPP-abdominal stretch; Hip stretches: Moshe Piriformis (knee to opp shdr), Lateral Hip, Fig 4. 08/16/23: HEP: Iliopsoas stretch in Herminio Test position. LTG Duration 12 wks-10/12/23 progressed on 08/16/23 Assessment Summary Assessment Pt is 13 minutes late. Pt is a 73 yo female with frequency of bowel movements (6-8) daily since onset of IBS in 2018, bowel types 5 & 6. The pt is still showing increased bowel movement frequency first in the morning consistently 3-5 BM's from 6-11 am. She demonstrates improved deep breathing technique, appropriate child pose positioning, and improved tolerance to hip stretches w/o knee pain complaints, possibly due to pt just completing a yoga workout before therapy today. Very good understanding of core pressure mgmt through breathwork during practice. Physical Therapy Plan Frequency and Duration Frequency of Treatment 1x/Week Duration of treatment (weeks) 12 Plan of Care Start Date 07/19/23 Plan of Care End Date 10/12/23 Next Visit Focus/Plan Next Note Type Treatment Note Next Visit Plan Next: Assess if pt taking time and doing DB w/BM in AM. Pt to do stretching at home mostly. Start Training to relax PF, neuro reeducation - coordination of PF contractions w/ms relaxation, breathing coordination with posterior PF/anal stretch, add L trunk rot stretch, and posture training. Manual: abdominal mobility and if needed: STM of abdomen (and urachus) & bladder mobility POC: Pt education, Manual therapy. Biofeedback with vaginal sensor for PF relaxation awareness, Therapeutic Exercises, Therapeutic Activities, Neuromuscular Reeducation.
--- NOTE | 2023-10-04 15:38 | PT.OTN ---
Current Diagnoses Functional diarrhea (10/04/23) Low back pain, unspecified (10/04/23) Other specified disorders of muscle (10/04/23) Unspecified abdominal pain (10/04/23) Physical Therapy Treatment Note PT-OP-A Visit Information Start: 07/05/23 17:50 Freq: Status: Active Protocol: Document 10/04/23 13:47 LRN (Rec: 10/04/23 15:37 LRN [id number]) Out-Patient Physical Therapy Visit Information Visit Information Visit Type Treatment Note Visit Start Time 13:47 Visit Stop Time 14:29 Visit Number 8 Evaluation Information Evaluation Date 07/19/23 Precautions Precautions Intermittent Low back and now mid back pain possibly from IBS (03/2016), Osteoporosis, 3 surgeries for L tibial plateau fx, f/b L TKA 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 Osteoporosis . PT-OP-B Current Condition Start: 07/05/23 17:50 Freq: Status: Active Protocol: Document 07/19/23 13:48 LRN (Rec: 07/19/23 16:40 LRN [id number]) Current Condition History of Current Condition Onset Date 03/2016 Current Complaints PF ms not working properly, BM's 4-8x in morning. Pain associated w/BMs History of Current Condition Daily IBS pain and weird bowel habits that started 04/2018. Has 4-8 BM's in AM daily, wakes every morning with pain in intestines at 4:30 am, wakes by 5:30 am. Takes 2 hrs to push out fecal material. Can't be horizontal except for 5 hrs at a time. Pt states she was referred by GI physician due to the IBS. Treatment to use PF ms treatment with biofeedback to train her to properly push out fecal material better. Doesn't want to focus on urinary problems. Prior Treatments and Tests None. Takes double Miralax daily. Eats salads and food for fiber due to IBS. Developmental History Developmental History 2017 had normal bowel movements, daily. IBS thought caused by bacterial infections. Started as severe diahrrea and moved into cramping all the time. Treatment Goals Patient/Caregiver Goals Pt goal: Able to reduce the number of BMs in morning, BM's w/o pain. Make travelling easier to have more normal bowel mvmts w/o pain. Doesn' t want to focus on urinary problems. Personal Factors Other Personal Factors That May Effect IBS, LBP, Osteoporosis, multi Therapy/Recovery surgeries on L knee. PT-OP-C Subjective Start: 07/05/23 17:50 Freq: Status: Active Protocol: Document 10/04/23 13:47 LRN (Rec: 10/04/23 15:37 LRN [id number]) OP-PT Subjective Patient Comments Patient Comments States she has not been doing well because her cat had to have Emergency surgery due to bowel blockage. States she has had a rash that has gone from her stomach to her leg and had itching in the hands. States she is only getting 5 hrs of sleep because she is waking up early and not able to fall asleep easily. States her multiple BM are now more condensed to a 2 hr period vs 4 hrs and used to be 6 hrs. PT-OP-I Pelvic Floor Start: 07/05/23 17:50 Freq: Status: Active Protocol: Document 08/03/23 13:02 LRN (Rec: 08/03/23 14:19 LRN [id number]) Pelvic Floor Assessment SEMG (uV) Baseline 0.4 Quick Contraction 13.5 10 Second Contraction 11.5 Recruitment Pattern Good Relaxation Fair Holding Fair Stability of Hold Poor/Slow SEMG Stability of Rest Good Comments Pelvic Floor Comments Quick Flicks: With substitute ms noted: 10 reps strength (uV's): avg work 14.5, avg rest 6.4. 20 reps strength (uV's): avg work 15.7, avg rest 6.3. Without Substitute Muscles: 10 reps strength (uV's): avg work 13.5, avg rest 4.6. 20 reps strength (uV's): avg work 12.9, avg rest 3.7. Long Holds: 10 reps strength (uV's): avg work 11.5, avg rest 10.1. 20 reps strength (uV's): avg work 10.1, avg rest 0.8. PT-OP-J Posture/Palpation/Skin Start: 07/05/23 17:50 Freq: Status: Active Protocol: Document 07/19/23 13:48 LRN (Rec: 07/19/23 16:40 LRN [id number]) Posture Evaluation Position Standing T-Spine Posture Increased Kyphosis L-Spine Posture Increased Lordosis Knee Posture (R) Genu Recurvatum Comments Posture Comments L/S curve pivot point at L4-L5 , Sacrum is flattened. PT-OP-K Range of Motion Start: 07/05/23 17:50 Freq: Status: Active Protocol: Document 07/19/23 13:48 LRN (Rec: 07/19/23 16:40 LRN [id number]) Lumbar Spine Range of Motion Lumbar Spine Active Degrees Testing Position Standing Flexion 110 Extension 12 Rotation Left 20 Rotation Right 40 Lateral Flexion Left 5 Lateral Flexion Right 5 Hip Goniometric Range of Motion Hip Right Passive Testing Position Supine Internal Rotation 20 External Rotation 50 Left Passive Testing Position Supine Internal Rotation 30 External Rotation 50 PT-OP-M Strength Start: 07/05/23 17:50 Freq: Status: Active Protocol: Document 07/19/23 13:48 LRN (Rec: 07/19/23 16:40 LRN [id number]) Trunk Strength Trunk Manual Muscle Testing Core Stabilization Good Hip Strength Hip Manual Muscle Testing Right Comments Generally 5/5 Left Comments Generally 5/5 PT-OP-Q Treatments Start: 07/05/23 17:50 Freq: Status: Active Protocol: Document 10/04/23 13:47 LRN (Rec: 10/04/23 15:37 LRN [id number]) Therapeutic Exercises Supine Exercises Arms overhead stretch Supine Exercise Name Arms Overhead stretch w/breath Side bilateral Reps/Minutes 3' Trunk rot w/breath Side bilateral Reps/Minutes 5' Comments Cued to inhale with twist and exh on retrun. Deep Breath with ms relaxation Supine Exercise Name Breathing coordination with posterior PF/anal stretch Reps/Minutes 4' Deep Breathing Supine Exercise Name Deep Breathing 5: 5 hold: 5 breathing pattern Equipment Used bolster Reps/Minutes 4' Prone Exercises TRIPP Prone Exercise Name TRIPP Reps/Minutes 2' Manual Therapy Treatment Soft Tissue Mobilization Abdomen Body Location umbilicus to pub bone Mobilization Type Myofascial Release Intensity/Depth Superficial Body Position Hooklying Comments MFR: Urachus region Self-Care/Home Management Treatment Activities Self-Care/Home Management Activities Pt reporting much stress in life and wanting to talk about all that is going on and what she is physically feeling. Discussion of events happening in her life and recommending the pt focus on deep breathing to get rest and relaxation of her system to reset from stress and strain. PT-OP-T Assessment and Plan Start: 07/05/23 17:50 Freq: Status: Active Protocol: Document 10/04/23 13:47 LRN (Rec: 10/04/23 15:37 LRN [id number]) Physical Therapy Assessment Goals Three Impairment Abdominal pain with bowel movments Short Term Goal (STG) Pt will be educated in best positioning for bowel movement . 08/09/23: Educated pt in use of squatty potty and sitting upright on toilet for BM. Pt reports she uses shoe boxes instead of squatty potty. STG Duration 6 wks-08/31/23 (08/09/23: MET GOAL) Sustainable Design Coordinator Goal (LTG) Pt will have less onset of abdominal pain with bowel movements. 08/09/23: Pt reporting less abdominal pain w/BM's with exercising (eliptical runner, wgt lifting, stretching machines, will be adding yoga and swim). LTG Duration 12 wks-10/12/23 improved w/ exer 08/09/23. Two Impairment Increased frequency of bowel movements daily. Impairment Pt has 6-8 BMs in AM daily, type 5 & 6. Short Term Goal (STG) Decrease number of BMs in the morning. 08/09/23: BM's mostly type 5 this week, in AM; finishing earler in the morning. STG Duration 6 wks-08/31/23 progressed Retirement Goal (LTG) Improve normal bowel movements to lessen time of voiding to make travelng easier. 10/04/23: Pt reporting timing of voids finishes within 2 hrs vs previously 6-8 hrs. LTG Duration 12 wks-10/12/23 One Impairment HEP Short Term Goal (STG) Pt will be educated in Bowel program and Bowel massage. 08/03/23: Pt educated in Bowel program and Bowel massage. STG Duration 6 wks-08/31/23 (08/03/23: MET GOAL) Retirement Goal (LTG) Pt will be educated in self care HEP of abdominal, PF, hip stretches, deep breathing, proper posturing and low back care. 07/26/23: HEP: Happy Baby Pose. 08/09/23: HEP: TRIPP-abdominal stretch; Hip stretches: Moshe Piriformis (knee to opp shdr), Lateral Hip, Fig 4. 08/16/23: HEP: Iliopsoas stretch in Herminio Test position. LTG Duration 12 wks-10/12/23 progressed on 08/16/23 Assessment Summary Assessment 73 yo female with incr'd freq of BM's (6-8) daily since onset of IBS in 2018, bowel types 5 & 6. Today pt presents in emotional distress over social events in her life. Pt appreciative of letting her voice her concerns , making proceeding with ex's with pt less stressed and appearing less distraught. Pt appeared more relaxed after much practice of deep breathing with several ex's. Pt was generally more restricted with mobility in R side of trunk anteriorly. In her history her R has been the tight side. Physical Therapy Plan Frequency and Duration Frequency of Treatment 1x/Week Duration of treatment (weeks) 12 Plan of Care Start Date 07/19/23 Plan of Care End Date 10/12/23 Next Visit Focus/Plan Next Note Type Treatment Note Next Visit Plan Next: Assess if pt taking time and doing DB w/BM in AM. Pt to do stretching at home mostly. Start Training to relax PF, neuro reeducation - coordination of PF contractions w/ms relaxation, add L trunk rot stretch, and posture training. Manual: abdominal mobility and if needed: STM of abdomen (and urachus) & bladder mobility POC: Pt education, Manual therapy. Biofeedback with vaginal sensor for PF relaxation awareness, Therapeutic Exercises, Therapeutic Activities, Neuromuscular Reeducation.
--- NOTE | 2023-10-23 08:01 | PT.OPDS ---
Current Diagnoses Functional diarrhea (10/04/23) Low back pain, unspecified (10/04/23) Other specified disorders of muscle (10/04/23) Unspecified abdominal pain (10/04/23) Visit Care Team Role Provider Type Family Provider Other Providers Referring Provider Specialty: Address: Phone: Fax: Email: Angelica Quarles MD Attending Provider Non-Staff Primary Care Provider Specialty: Family Practice Address: [address] [place] [address], [id number] Email: Visit Number Visit Number 8 Discharge Summary PT-OP-B Current Condition Start: 07/05/23 17:50 Freq: Status: Active Protocol: Document 07/19/23 13:48 LRN (Rec: 07/19/23 16:40 LRN [id number]) Current Condition History of Current Condition Onset Date 03/2016 Current Complaints PF ms not working properly, BM's 4-8x in morning. Pain associated w/BMs History of Current Condition Daily IBS pain and weird bowel habits that started 04/2018. Has 4-8 BM's in AM daily, wakes every morning with pain in intestines at 4:30 am, wakes by 5:30 am. Takes 2 hrs to push out fecal material. Can't be horizontal except for 5 hrs at a time. Pt states she was referred by GI physician due to the IBS. Treatment to use PF ms treatment with biofeedback to train her to properly push out fecal material better. Doesn't want to focus on urinary problems. Prior Treatments and Tests None. Takes double Miralax daily. Eats salads and food for fiber due to IBS. Developmental History Developmental History 2017 had normal bowel movements, daily. IBS thought caused by bacterial infections. Started as severe diahrrea and moved into cramping all the time. Treatment Goals Patient/Caregiver Goals Pt goal: Able to reduce the number of BMs in morning, BM's w/o pain. Make travelling easier to have more normal bowel mvmts w/o pain. Doesn' t want to focus on urinary problems. Personal Factors Other Personal Factors That May Effect IBS, LBP, Osteoporosis, multi Therapy/Recovery surgeries on L knee. PT-OP-C Subjective Start: 07/05/23 17:50 Freq: Status: Active Protocol: Document 10/23/23 07:30 LRN (Rec: 10/23/23 08:00 LRN [id number]) OP-PT Subjective Patient Comments Patient Comments Per phone conversation this morning (729) the pt states she is not feeling well and is not able to make the [address] directions, so she feels it would be best to discharge from therapy and seek a new referral when she if feeling better. Pt states she is continuing to do the HEP stretches and currently has no low back pain, feeling the stretches and change in weather might have been helpful, and asks for any other suggestions of ex's she can do. PT-OP-I Pelvic Floor Start: 07/05/23 17:50 Freq: Status: Active Protocol: Document 08/03/23 13:02 LRN (Rec: 08/03/23 14:19 LRN [id number]) Pelvic Floor Assessment SEMG (uV) Baseline 0.4 Quick Contraction 13.5 10 Second Contraction 11.5 Recruitment Pattern Good Relaxation Fair Holding Fair Stability of Hold Poor/Slow SEMG Stability of Rest Good Comments Pelvic Floor Comments Quick Flicks: With substitute ms noted: 10 reps strength (uV's): avg work 14.5, avg rest 6.4. 20 reps strength (uV's): avg work 15.7, avg rest 6.3. Without Substitute Muscles: 10 reps strength (uV's): avg work 13.5, avg rest 4.6. 20 reps strength (uV's): avg work 12.9, avg rest 3.7. Long Holds: 10 reps strength (uV's): avg work 11.5, avg rest 10.1. 20 reps strength (uV's): avg work 10.1, avg rest 0.8. PT-OP-J Posture/Palpation/Skin Start: 07/05/23 17:50 Freq: Status: Active Protocol: Document 07/19/23 13:48 LRN (Rec: 07/19/23 16:40 LRN [id number]) Posture Evaluation Position Standing T-Spine Posture Increased Kyphosis L-Spine Posture Increased Lordosis Knee Posture (R) Genu Recurvatum Comments Posture Comments L/S curve pivot point at L4-L5 , Sacrum is flattened. PT-OP-K Range of Motion Start: 07/05/23 17:50 Freq: Status: Active Protocol: Document 07/19/23 13:48 LRN (Rec: 07/19/23 16:40 LRN [id number]) Lumbar Spine Range of Motion Lumbar Spine Active Degrees Testing Position Standing Flexion 110 Extension 12 Rotation Left 20 Rotation Right 40 Lateral Flexion Left 5 Lateral Flexion Right 5 Hip Goniometric Range of Motion Hip Right Passive Testing Position Supine Internal Rotation 20 External Rotation 50 Left Passive Testing Position Supine Internal Rotation 30 External Rotation 50 PT-OP-M Strength Start: 07/05/23 17:50 Freq: Status: Active Protocol: Document 07/19/23 13:48 LRN (Rec: 07/19/23 16:40 LRN [id number]) Trunk Strength Trunk Manual Muscle Testing Core Stabilization Good Hip Strength Hip Manual Muscle Testing Right Comments Generally 5/5 Left Comments Generally 5/5 PT-OP-T Assessment and Plan Start: 07/05/23 17:50 Freq: Status: Active Protocol: Document 10/23/23 07:30 LRN (Rec: 10/23/23 08:00 LRN [id number]) Physical Therapy Assessment Goals Three Impairment Abdominal pain with bowel movments Short Term Goal (STG) Pt will be educated in best positioning for bowel movement . 08/09/23: Educated pt in use of squatty potty and sitting upright on toilet for BM. Pt reports she uses shoe boxes instead of squatty potty. STG Duration 6 wks-08/31/23 (08/09/23: MET GOAL) Customer Support Executive Goal (LTG) Pt will have less onset of abdominal pain with bowel movements. 08/09/23: Pt reporting less abdominal pain w/BM's with exercising (eliptical runner, wgt lifting, stretching machines, will be adding yoga and swim). LTG Duration 12 wks-10/12/23 (10/23/23: NOT MET GOALS, early discharge) Two Impairment Increased frequency of bowel movements daily. Impairment Pt has 6-8 BMs in AM daily, type 5 & 6. Short Term Goal (STG) Decrease number of BMs in the morning. 08/09/23: BM's mostly type 5 this week, in AM; finishing earler in the morning. STG Duration 6 wks-08/31/23 (10/23/23: NOT MET GOALS, early discharge) [facility] Goal (LTG) Improve normal bowel movements to lessen time of voiding to make travelng easier. 10/04/23: Pt reporting timing of voids finishes within 2 hrs vs previously 6-8 hrs. LTG Duration 12 wks-10/12/23 (10/23/23: NOT MET GOALS, early discharge) One Impairment HEP Short Term Goal (STG) Pt will be educated in Bowel program and Bowel massage. 08/03/23: Pt educated in Bowel program and Bowel massage. STG Duration 6 wks-08/31/23 (08/03/23: MET GOAL) [facility] Goal (LTG) Pt will be educated in self care HEP of abdominal, PF, hip stretches, deep breathing, proper posturing and low back care. 07/26/23: HEP: Happy Baby Pose. 08/09/23: HEP: TRIPP-abdominal stretch; Hip stretches: Moshe Piriformis (knee to opp shdr), Lateral Hip, Fig 4. 08/16/23: HEP: Iliopsoas stretch in Herminio Test position. 10/23/23: Verbal instructions for very gentle intermittent reverse Kegel if she is not able to feel her PF relax/ contract with deep breathing. Pt instructed to allow only a gentle stretch/lengthening of PF during breathing and to stop when awareness of movement occurs. LTG Duration 12 wks-10/12/23 (10/23/23: NOT MET GOALS, early discharge ) Assessment Summary Assessment 73 yo female with incr'd freq of BM's (6-8) daily since onset of IBS in 2018, bowel types 5 & 6. Per phone, the pt requests discharge from therapy due to not feeling well and not able to tolerate the drive back/forth to physical therapy. She reports doing her home ex stretches and notes she is not having back pain currently. It was recommended that the pt seek therapy for back pain if it returns and becomes persistent . Physical Therapy Plan Other Referrals/Consults Referrals/Consults Recommended Physical therapy locally of the patient if her back pain returns and becomes persistent . Discharge Physical Therapy Discharge Reasons Patient Request Discharge Comments Pt will seek a new referral when she feels better, and is able to make the one hour drive to therapy.
== END 2023-10-25 09:43 | disposition home or self-care (01) ==
LOC: PHYS 13:45
PROVIDERS: PCP Family Medicine; Visit Provider Family Medicine
DX: M62.89 Other specified disorders of muscle (principal); K59.1 Functional diarrhea; M54.50 Low back pain, unspecified; R10.9 Unspecified abdominal pain
CPT/HCPCS: 97110; 97140; 97162; 97530; 97535

== ENCOUNTER 2023-11-03 14:10 | Emergency (ER) | payer MEDICARE, SELFPAY ==
[2023-11-03] VITALS (9 sets, daily range): BP systolic 123–186; BP diastolic 66–88; PULSE 58–82; RESP 16; TEMP 36.6; O2SAT 98–100; BMI 22.8
--- NOTE | 2023-11-03 14:28 | ED_ITS ---
HPI - Abdominal Pain General Chief Complaint: Abdominal Pain Stated Complaint: ABD PAIN X FEW DAYS Time Seen by Provider: 11/03/23 14:12 History of Present Illness HPI narrative: 73-year-old female with reported history of IBD-C, remote history of cholecystectomy presents for 3-4 days of gradually worsening abdominal pain and nausea. Pain is generalized, but maybe slightly worse on the right-hand side, constant, worse with eating. Nothing seems to improve the pain. Of note, CLEM form shows 2 visits to [facility] 09/14 and 09/16 for abdominal pain. Patient underwent unremarkable workup both times and both times had negative CT scans. Related Data Home Medications Medication Instructions Recorded Confirmed dicyclomine 20 mg tablet 20 mg PO 4XD 11/03/23 11/03/23 famotidine 20 mg tablet 20 mg PO PRN PRN Abdominal 11/03/23 11/03/23 Discomfort losartan 25 mg tablet 25 mg PO BID 11/03/23 11/03/23 naltrexone 50 mg tablet mg PO DAILY 11/03/23 Allergies Allergy/AdvReac Type Severity Reaction Status Date / Time No Known Allergies Allergy Uncoded 11/03/23 14:30 Patient History Social History Smoking Status: Former smoker Smoking Status: Former smoker tobacco type: cigarettes alcohol intake frequency: 0-2 drinks per day Substance Use Type: does not use Exam Initial Vital Signs Initial Vital Signs: Vital Signs Pulse Rate 82 11/03/23 14:22 Blood Pressure 168/88 H 11/03/23 14:22 Pulse Oximetry 98 11/03/23 14:22 Const: Awake, alert, tearful, nontoxic appearing Cardiac: regular rate, regular rhythm RESP: unlabored, clear bilaterally, no wheezing GI: Soft, generalized tenderness to deep palpation without rebound or guarding Skin: Warm, Dry, intact, no rashes Neuro: AO x3, CN II-XII grossly intact, moves all extremities Course Orders Ordered: ED Orders 11/03/23 14:28 CT abdomen pelvis w con Stat CBC Auto Diff [Complete Blood Count AUTO DIFF] Stat CMP [Comprehensive Metabolic Panel] Stat Lactate (Lactic Acid) Stat Lipase Stat Discontinued Medications Sodium Chloride (Normal Saline 0.9%) 1,000 mls @ 1,000 mls/hr IV BOLUS ONE Stop: 11/03/23 15:25 Last Infusion: 11/03/23 15:41 Dose: Infused Documented By: Admin: 11/03/23 14:41 Dose: 1,000 mls/hr Documented By: BLESSING Morphine Sulfate (Morphine 4 Mg/Ml Inj) 4 mg IV NOW ONE Stop: 11/03/23 14:27 Last Admin: 11/03/23 14:38 Dose: Not Given Documented By: BLESSING Morphine Sulfate (Morphine 4 Mg/Ml Inj) 4 mg IV NOW ONE Stop: 11/03/23 15:06 Last Admin: 11/03/23 15:12 Dose: 4 mg Documented By: BLESSING Ondansetron HCl (Ondansetron 4 Mg/2 Ml Inj) 4 mg IV NOW ONE Stop: 11/03/23 14:27 Last Admin: 11/03/23 14:38 Dose: Not Given Documented By: BLESSING Vital Signs Vital signs: Vital Signs - 8 hr 11/03/23 14:22 11/03/23 14:22 11/03/23 14:26 Temperature 97.8 F Pulse Rate 82 79 Respiratory Rate 16 Blood Pressure 168/88 H 168/88 H Pulse Oximetry 98 98 Oxygen Delivery Method Room Air 11/03/23 14:30 11/03/23 14:30 11/03/23 15:00 Temperature Pulse Rate 70 59 L Respiratory Rate Blood Pressure 138/73 Pulse Oximetry 99 100 Oxygen Delivery Method Room Air 11/03/23 15:00 11/03/23 15:26 11/03/23 15:26 Temperature Pulse Rate 73 Respiratory Rate Blood Pressure 153/77 H 186/79 H Pulse Oximetry 100 Oxygen Delivery Method 11/03/23 15:30 11/03/23 15:30 11/03/23 16:00 Temperature Pulse Rate 69 72 Respiratory Rate Blood Pressure 167/77 H Pulse Oximetry 100 100 Oxygen Delivery Method 11/03/23 16:00 11/03/23 16:32 11/03/23 16:32 Temperature Pulse Rate 69 Respiratory Rate Blood Pressure 171/85 H 123/83 Pulse Oximetry 100 Oxygen Delivery Method 11/03/23 17:00 11/03/23 17:00 Temperature Pulse Rate 58 L Respiratory Rate Blood Pressure 138/66 Pulse Oximetry 99 Oxygen Delivery Method MDM - Abdominal Pain Differential Diagnosis Differential diagnosis: Likely abdominal pain, acute appendicitis and calculus of kidney Lab Data 11/03/23 14:28 11/03/23 14:28 Labs: Lab Results 11/03/23 Range/Units 14:28 WBC 6.0 (4.5-11.0) X10^3/uL RBC 4.91 (4.0-5.2) X10^6/uL Hgb 15.9 (12.0-16.0) g/dL Hct 46.8 H (36-46) % MCV 95.2 (80-100) fL MCH 32.3 (26-34) PG MCHC 33.9 (30-36) % RDW 13.2 (11.6-14.8) % Plt Count 239 (150-400) X10^3/uL Neut % (Auto) 67.8 (50-75) % Lymph % (Auto) 23.5 L (25-40) % [place] % (Auto) 6.2 (3-14) % Eos % (Auto) 1.2 L (2-4) % Baso % (Auto) 1.3 (0-2) % Neut # (Auto) 4100 (3675-2076) /uL Lymph # (Auto) 1400 (0467-1392) /uL [place] # (Auto) 400 (0-900) /uL Eos # (Auto) 100 (0-450) /uL Baso # (Auto) 100 (0-100) /uL Sodium 136 L (137-145) mmol/L Potassium 4.5 (3.4-5.1) mmol/L Chloride 106 (98-107) mmol/L Carbon Dioxide 26 (22-32) mmol/L BUN 15 (7-17) mg/dL Creatinine 0.71 (0.52-1.04) mg/dL Estimated GFR > 60 (>60) mL/min BUN/Creatinine Ratio 21.1 (6-22) Glucose 92 (80-110) mg/dL Lactate 1.3 (0.7-2.1) mmol/L Calcium 9.8 (8.4-10.2) mg/dL Total Bilirubin 0.8 (0.2-1.3) mg/dL AST 44 H (14-36) IU/L ALT 31 (<35) IU/L Alkaline Phosphatase 70 (38-126) U/L Total Protein 7.6 (6.3-8.2) g/dL Albumin 4.6 (3.5-5.0) g/dL Globulin 3.0 (1.7-4.1) g/dL Albumin/Globulin Ratio 1.5 (1.0-2.8) Lipase 103 (23-300) U/L Point of care testing: Urine Dip Bedside Urine Glucose Negative Bedside Urine Bilirubin - Negative Bedside Urine Ketone - Negative Urine Specific [place] 1.010 Bedside Urine Occult Blood - Negative Bedside Urine pH 7.0 Bedside Urine Protein - Negative Bedside Urine Urobilinogen - Negative Bedside Urine Nitrite - Negative Bedside Urine Leukocytes - Negative Esterase Imaging Data CT scan - abdomen/pelvis: Radiologist's Impression: PROCEDURE: CT ABDOMEN PELVIS W CON INDICATIONS: R SIDED ABD PAIN, NAUSEA TECHNIQUE: After the administration of intravenous contrast, axial sections acquired from the lung bases to the pubic symphysis. Coronal and sagittal reformats were performed. For radiation dose reduction, the following was used: automated exposure control, adjustment of mA and/or kV according to patient size. COMPARISON: [facility], CT, CT ABDOMEN PELVIS W CON, 09/03/2022, 18:28. FINDINGS: Image quality: Diagnostic. Lower Chest: No significant findings. ABDOMEN: Liver: No solid mass. Gallbladder: Absent Biliary ducts: No biliary dilation. Pancreas: No ductal dilation. Spleen: Size is within normal limits. Adrenal Glands: No adrenal nodules. Kidneys and Ureters: No hydronephrosis. No solid mass. No complex renal cystic lesion which requires follow up. Stomach and Bowel: Normal colonic caliber, without significant wall thickening. Peritoneum: No abnormal intraperitoneal fluid. No free air. Ventral Wall: No significant ventral hernia. Abdominal Nodes: No retroperitoneal or mesenteric adenopathy by size criteria. Vessels: Aorta and inferior vena cava are normal in size. PELVIS: Pelvic Organs: Unremarkable. Bladder: No bladder wall thickening, accounting for underdistention. Pelvic Nodes: No enlarged lymph nodes. Miscellaneous: No inguinal hernias are seen. Bones: No aggressive osseous abnormality. IMPRESSION: No acute abdominopelvic process. Approved by: Nila Gallegos M.D.,Ph.D. on 11/03/2023 at 15:46 MDM Narrative Medical decision making narrative: Nontoxic patient presenting for right-sided abdominal pain. Abdomen is soft, no focal tenderness to deep palpation, no rebound or guarding. Pain and nausea medications ordered, since we do not have the CTs on file a repeat CT scan will be ordered in this emergency department. Laboratory work is entirely unremarkable. CT imaging shows no acute abdominal pelvic process to explain patient's symptoms. Patient reassessed, resting in ED bed, no acute distress. Results of labs imaging discussed with the patient as well as the fact that this is patient's 3rd ER workup including CT scans since 09/15/2023 for abdominal pain. I highly recommended that patient follow up with her GI doctor as she has had multiple negative workups from the emergency department standpoint. Each time laboratory work and CT imaging are fairly unremarkable, minus some mild gastritis seen on [facility] CT scan. Patient states she will call her GI doctor on Sunday to try to make a follow up appointment. Discharge Plan Departure Patient Disposition: Home Clinical Impression: Abdominal pain Instructions: DI for Abdominal Pain-Adult Activity Restrictions/Additional Instructions: Your laboratory work and CT imaging today were both normal. I highly recommend that you follow up with your primary care doctor and your GI doctor for your ongoing abdominal pain. Prescriptions: No Action naltrexone 50 mg Tablet PO DAILY famotidine 20 mg tablet 20 mg PO PRN PRN (Reason: Abdominal Discomfort) dicyclomine 20 mg tablet 20 mg PO 4XD losartan 25 mg tablet 25 mg PO BID Referrals: Angelica Quarles MD [Primary Care Provider] - Stand Alone Forms: Patient Portal/API
[2023-11-03 14:37] LABS: Add Manual Diff / Slide Review NO; Basophils Absolute Auto 100 /uL (0-100); Basophils Percent Auto 1.3 % (0-2); Eosinophils Absolute Auto 100 /uL (0-450); Eosinophils Percent Auto 1.2 % (2-4); Hematocrit 46.8 % (36-46); Hemoglobin 15.9 g/dL (12.0-16.0); Lymphocytes Absolute Auto 1400 /uL (1100-4500); Lymphocytes Percent Auto 23.5 % (25-40); Mean Corpuscular HGB Conc 33.9 % (30-36); Mean Corpuscular Hemoglobin 32.3 PG (26-34); Mean Corpuscular Volume 95.2 fL (80-100); Monocytes Absolute Auto 400 /uL (0-900); Monocytes Percent Auto 6.2 % (3-14); Neutrophils Absolute Auto 4100 /uL (1500-7000); Neutrophils Percent Auto 67.8 % (50-75); Platelet Count 239 X10^3/uL (150-400); Red Blood Cell Count 4.91 X10^6/uL (4.0-5.2); Red Cell Distribution Width 13.2 % (11.6-14.8)
[2023-11-03] MEDS: SODIUM CHLORIDE 0.9% 1,000 ML 1000 ML IV (14:41)
[2023-11-03 14:52] LABS: Alanine Aminotransferase 31 IU/L (<35); Albumin 4.6 g/dL (3.5-5.0); Albumin Globulin Ratio 1.5 (1.0-2.8); Alkaline Phosphatase 70 U/L (38-126); Aspartate Aminotransferase 44 IU/L (14-36); BUN Creatinine Ratio 21.1 (6-22); Bilirubin Total 0.8 mg/dL (0.2-1.3); Blood Urea Nitrogen 15 mg/dL (7-17); Calcium 9.8 mg/dL (8.4-10.2); Carbon Dioxide 26 mmol/L (22-32); Chloride 106 mmol/L (98-107); Estimated Glomerular Filt Rate > 60 mL/min (>60); Glucose 92 mg/dL (80-110); Lipase 103 U/L (23-300); Potassium 4.5 mmol/L (3.4-5.1); Sodium 136 mmol/L (137-145); Total Protein 7.6 g/dL (6.3-8.2)
[2023-11-03 14:53] LABS: Lactate (Lactic Acid) 1.3 mmol/L (0.7-2.1)
[2023-11-03 14:58] LABS: HEMOLYSIS 116 (0-50)
--- NOTE | 2023-11-03 14:59 | PC.NURSE ---
Patient in pain, requesting tylenol, Dr. Jackson aware.
[2023-11-03] MEDS: MORPHINE 4 MG/ML INJ IV (15:12)
== END 2023-11-03 17:09 | disposition home or self-care (01) ==
PROVIDERS: Emergency Provider Emergency Medicine; PCP Family Medicine
DX: R10.84 Generalized abdominal pain (principal); R11.0 Nausea
CPT/HCPCS: 36415; 74177; 80053; 81003; 83605; 83690; 85025; 96374; 99284; J2270; Q9967

== ENCOUNTER → 2024-05-12 14:31 | Outpatient (CLI) | payer MEDICARE, SELFPAY ==
--- NOTE | 2024-05-12 14:52 | DI.MRI.S_ITS ---
PROCEDURE: MR LUMBAR SPINE WO CON INDICATIONS: LUMBAR STENOSIS/EVAL NEURO STRUCTURES TECHNIQUE: Noncontrast sagittal T1 spin echo and T2 fast echo, sagittal STIR, and T2 fast spin echo through the lumbar spine. In cases with scoliosis, additional coronal T2 fast spin echo may be performed. COMPARISON: None. FINDINGS: Alignment and Curvature: L1-2 grade 1 retrolisthesis. Bone Marrow: Marrow is of normal overall signal. No acute vertebral body compression fractures. Spinal Cord: Conus medullaris terminates at the L1 level. Visualized cord demonstrates normal signal and size. Paraspinous Soft Tissues: No paravertebral masses. T12-L1: Normal appearance. L1-L2: Disc space narrowing and hypertrophic facet joints. Mild central stenosis. Moderate bilateral foraminal stenosis greater on the right L2-L3: Disc bulge and arthropathy. [id number] central stenosis. Moderate bilateral foraminal stenosis. L3-L4: Moderate hypertrophic facet joints. Mild disc bulge. Moderate central stenosis. Moderate bilateral foraminal stenosis L4-L5: Disc bulge and arthropathy. Severe central stenosis. Severe bilateral foraminal stenosis. L5-S1: Moderate arthropathy. Moderate left and no right foraminal stenosis. No central stenosis. IMPRESSION: Multilevel degenerative disc disease and arthropathy results in varying degrees of central and foraminal stenosis including severe central and severe bilateral foraminal stenosis L4-5 Approved by: Marck Dumont M.D. on 05/13/2024 at 17:49
== END ==
LOC: MRI 14:34
PROVIDERS: Referring Provider Orthopaedic Surgery Orthopaedic Surgery of the Spine; Visit Provider Orthopaedic Surgery Orthopaedic Surgery of the Spine
DX: M48.062 Spinal stenosis, lumbar region with neurogenic claudication (principal); M48.07 Spinal stenosis, lumbosacral region; M51.369 Other intervertebral disc degeneration, lumbar region without mention of lumbar back pain or lower extremity pain; M47.816 Spondylosis without myelopathy or radiculopathy, lumbar region; M47.817 Spondylosis without myelopathy or radiculopathy, lumbosacral region
CPT/HCPCS: 72148

== ENCOUNTER → 2024-07-17 11:32 | Outpatient (CLI) | payer MEDICARE, SELFPAY ==
--- NOTE | 2024-07-17 11:34 | DI.MRI.S_ITS ---
PROCEDURE: MR LUMBAR SPINE WO CON INDICATIONS: LUMBAR CANAL STENOSIS,RADICULOPATHY TECHNIQUE: Noncontrast sagittal T1 spin echo and T2 fast echo, sagittal STIR, and T2 fast spin echo through the lumbar spine. In cases with scoliosis, additional coronal T2 fast spin echo may be performed. COMPARISON: [facility], MR, MR LUMBAR SPINE WO CON, 05/12/2024, 14:54. FINDINGS: Image quality: Excellent. Alignment and Curvature: Grade 1 L1-2 retrolisthesis Bone Marrow: Marrow is of normal overall signal. No acute vertebral body compression fractures. Spinal Cord: Conus medullaris terminates at the L1 level. Visualized cord demonstrates normal signal and size. Paraspinous Soft Tissues: No paravertebral masses. T12-L1: No central or foraminal stenosis L1-L2: Disc bulge and arthropathy present. Mild central stenosis. Severe right and mild left foraminal stenosis L2-L3: Disc bulge and arthropathy moderate central stenosis. Moderate bilateral foraminal stenosis L3-L4: Disc bulge and arthropathy. Moderate central stenosis. Mild bilateral foraminal stenosis L4-L5: Disc bulge and arthropathy. Severe central and bilateral foraminal stenosis. L5-S1: Arthropathy. No central stenosis. Moderate left and no right foraminal stenosis IMPRESSION: Stable degenerative disc disease and arthropathy with severe central and foraminal stenosis at L4-5 Approved by: Marck Dumont M.D. on 07/17/2024 at 13:40
== END ==
LOC: MRI 11:33
PROVIDERS: Referring Provider Anesthesiology; Visit Provider Anesthesiology
DX: M47.27 Other spondylosis with radiculopathy, lumbosacral region (principal); M47.26 Other spondylosis with radiculopathy, lumbar region; M51.16 Intervertebral disc disorders with radiculopathy, lumbar region; M48.061 Spinal stenosis, lumbar region without neurogenic claudication; M48.07 Spinal stenosis, lumbosacral region; M46.96 Unspecified inflammatory spondylopathy, lumbar region; M99.83 Other biomechanical lesions of lumbar region
CPT/HCPCS: 72148

== ENCOUNTER → 2024-12-16 14:55 | Outpatient (CLI) | payer MEDICARE, SELFPAY ==
--- NOTE | 2024-12-16 15:01 | DI.RAD.S_ITS ---
PROCEDURE: ORTHO-XR FOOT 3V WB LEFT COMPARISON: None. 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 Joints: Moderate 1st MTP, moderate talocalcaneal, all interphalangeal and all MTT joint degeneration noted Soft tissues: No soft tissue abnormality. IMPRESSION: Chronic findings Dictated by: Venkatesh Araujo M.D. on 12/17/2024 at 11:01 Approved by: Venkatesh Araujo M.D. on 12/17/2024 at 11:03
--- NOTE | 2024-12-16 15:01 | DI.RAD.S_ITS ---
PROCEDURE: ORTHO-XR FOOT 3V WB RIGHT INDICATIONS: BILATERAL FOOT PAIN TECHNIQUE: 3 weight-bearing views acquired of the foot. COMPARISON: None. FINDINGS: Bones: Severe hallux valgus, pes planus and mild hammertoe deformities 1st through 5th digits appreciated. Joints: Moderate 1st MTP degeneration noted. There is mild degenerative change in all DIP joints and throughout the midfoot. Soft tissues: No soft tissue abnormality. IMPRESSION: Chronic findings Dictated by: Venkatesh Araujo M.D. on 12/17/2024 at 11:03 Approved by: Venkatesh Araujo M.D. on 12/17/2024 at 11:04
== END ==
PROVIDERS: Referring Provider Podiatrist Foot & Ankle Surgery; Visit Provider Podiatrist Foot & Ankle Surgery
DX: M19.071 Primary osteoarthritis, right ankle and foot (principal); M19.072 Primary osteoarthritis, left ankle and foot; M20.12 Hallux valgus (acquired), left foot; M20.11 Hallux valgus (acquired), right foot; M20.42 Other hammer toe(s) (acquired), left foot; M20.41 Other hammer toe(s) (acquired), right foot; M21.42 Flat foot [pes planus] (acquired), left foot; M21.41 Flat foot [pes planus] (acquired), right foot; M79.671 Pain in right foot; M79.672 Pain in left foot
CPT/HCPCS: 73630

== ENCOUNTER → 2025-03-27 13:23 | Outpatient (CLI) | payer MEDICARE, SELFPAY ==
--- NOTE | 2025-03-27 13:33 | DI.NM.S_ITS ---
PROCEDURE: NM PARATHYROID SPECT RADIOPHARMACEUTICAL: 27.5 mCi Tc-99m sestamibi IV. INDICATIONS: Hypercalcemia TECHNIQUE: After intravenous administration of Tc-99m sestamibi, anterior planar images of the neck and mediastinum were obtained at approximately 10 minutes and 2-3 hours. SPECT images were acquired after the 10 minute planar images. COMPARISON: None. FINDINGS: On the early imaging mild bilobed thyroid gland appears unremarkable. Normal salivary gland activity is present on the early imaging. In addition, there is focal mild to moderately intense activity in the right lower neck below the right inferior thyroid lobe during the immediate imaging. This persists on delayed imaging with subsequent partial washout of the thyroid parenchyma. SPECT imaging confirms focal uptake in the right lower neck inferior to the right inferior thyroid lobe corresponding to the suspected parathyroid adenoma. No ectopic parathyroid adenoma detected. IMPRESSION: Probable parathyroid adenoma in the right lower neck confirmed on planar immediate and delayed imaging and SPECT imaging. Dictated by: Joan Flores M.D. on 03/30/2025 at 18:40 Approved by: Joan Flores M.D. on 03/30/2025 at 18:43
== END ==
PROVIDERS: PCP Family Medicine; Referring Provider Family Medicine; Visit Provider Family Medicine
DX: E83.52 Hypercalcemia (principal)
CPT/HCPCS: 78071; A9500